=== PATIENT | male | born 1950 | race Caucasian/White ===

== ENCOUNTER 2017-05-05 09:25 | Inpatient (IN) ==
[2017-05-05] MEDS ORDERED: Ipratropium/Albuterol Neb 3 ML IH ONE (09:28)
[2017-05-05] MEDS ORDERED: *HR* LORazepam 2 MG/ML VIAL IVP ONE ×2 (09:32)
[2017-05-05] MEDS ORDERED: *HR* LORazepam 2 MG/ML VIAL ONE (09:33)
[2017-05-05] MEDS ORDERED: Ipratropium/Albuterol Neb 3 ML ONE (09:36)
[2017-05-05 09:43] LABS: Hematocrit 43.2 % (37.5-50.1); Hemoglobin 13.5 g/dL (12.9-16.9); Mean Corpuscular HGB Conc 31.3 g/dL (31.6-35.5); Mean Platelet Volume 11.6 fL (9.4-12.4); Platelet Count 294 K/mcL (140-400)
[2017-05-05] MEDS ORDERED: Levofloxacin 750 MG/150 ML 750 MG/150 ML BAG IVPB ONE (09:52)
[2017-05-05] MEDS ORDERED: 0.9 % Sodium Chloride 500 ML IVC ONE (09:53)
[2017-05-05 09:55] LABS: BUN/Creatinine Ratio 12 (6-26); Blood Urea Nitrogen 15 mg/dL (8-26); Calcium 9.1 mg/dL (8.6-10.8); Carbon Dioxide 31 mEq/L (19-29); Chloride 91 mEq/L (98-109); Osmolality,Calculated 318 (280-300); Potassium 3.6 mEq/L (3.5-4.5); Sodium 140 mEq/L (136-145); eGFR For African Americans > 60 (> 60); eGFR For Non-African Americans > 60 (> 60)
--- NOTE | 2017-05-05 09:55 | Emergency Department Note ---
Disposition Clinical Impression: COPD exacerbation, Elevated troponin, Newly diagnosed diabetes, Acidosis CHF (congestive heart failure) Qualifiers: Congestive heart failure type: unspecified congestive heart failure type Congestive heart failure chronicity: unspecified congestive heart failure chronicity Qualified Code(s): I50.9 - Heart failure, unspecified Disposition: Admitted As Inpatient Referrals: NO,PCP [Primary Care Provider] - Forms: ED Satisfaction Letter SOB HPI - General Chief Complaint: ED Shortness of Breath/Dyspnea Stated Complaint: Diff breathing Time Seen by Provider: 05/05/17 09:28 Source: patient, EMS Limitations: no limitations Nursing Notes Reviewed: Yes Vital Signs Reviewed: Yes - History of Present Illness Patient brought in by ambulance for evaluation of dyspnea. Patient was found to be hypoxic in the mid 70s by EMS. Patient was placed on nonrebreather and brought to [facility]. During route patient received 2 breathing treatments as well as 125 mg of Solu-Medrol. They attempted CPAP but the patient did not tolerate. Patient is a COPD requiring home oxygen 2L, CHF patient states that he started feeling bad at approximately 7 AM today. - Related Data Home Medications Medication Instructions Recorded Confirmed Buprenorphine HCl/Naloxone HCl 1 each SL DAILY 09/24/16 01/20/17 [Suboxone 8 mg-2 mg Sl Film] Digoxin [Lanoxin] 0.125 mg PO DAILY 09/24/16 01/20/17 Fluticasone/Salmeterol [Advair 1 each IH DAILY 09/24/16 01/20/17 250-50 Diskus] Furosemide [Lasix] 20 mg PO DAILY 09/24/16 01/20/17 Albuterol Neb [Proventil Neb] 2.5 mg IH Q4HR 05/05/17 05/05/17 Ibuprofen [Motrin] 800 mg PO TID 05/05/17 05/05/17 Roflumilast [Daliresp] 500 mcg PO DAILY 05/05/17 05/05/17 Previous Rx's Medication Instructions Recorded Carvedilol 12.5 mg PO BID #30 tab 01/22/17 Lisinopril [Zestril] 20 mg PO DAILY #30 tablet 01/22/17 Potassium Chloride [Klor-Con 10] 10 meq PO BID #60 tablet.er 01/22/17 Allergies Allergy/AdvReac Type Severity Reaction Status Date / Time No Known Allergies Allergy Verified 01/17/17 04:28 Review of Systems: CARDIOVASCULAR: Complained of chest pain family 2 days ago RESPIRATORY: Shortness of breath Limitations: ROS unobtainable due to patients medical condition Past Medical History - Past Medical History Medical history: Reports: atrial fibrillation, CHF, COPD, GERD, hyperlipidemia, hypertension, TIA, other Surgical history: Reports: appendectomy, heart valve replacement, pacemaker/AICD Psychiatric history: Reports: anxiety - Social History Smoking Status: Former smoker Smokeless Tobacco Status: Yes (chewing tobacco) Alcohol use: Reports: none Drug use: Reports: none Physical Exam General appearance: Respiratory distress with tachypnea and accessory muscle use. Minimally conversant secondary to overall distress. Patient is able to talk in short sentences. Protecting his airway at this time. Nonrebreather in place. BiPAP initiated upon arrival Eyes: anicteric sclerae, moist conjunctivae; PERRL HENT: Atraumatic; oropharynx clear with moist mucous membranes and no mucosal ulcerations Neck: Normal inspection; Trachea midline; FROM, supple Lungs: Diminished throughout CV: RRR, no MRGs Abdomen: Soft, non-tender; no rebound or gaurding Extremities: +2 pitting edema to the midcalf Skin: Normal temperature; no rash, ulcers or lesions Neuro: Awake limited responsiveness secondary to respiratory distress - General Limitations: no limitations General appearance: alert Course - Reevaluation(s) Reevaluation #1: This patient did not receive 30 mL/kg due for possible sepsis secondary normal HR and BP and history of CHF. Reevaluation #2: Patient with mildly elevated troponin and BNP. Patient with significantly elevated glucose in the setting of a acidotic venous blood gas not completely explained by elevated CO2. Elevated ketones. Patient is tolerating BiPAP well with improvement overall. Insulin drip will be started in the patient's fluid will have 20 mEq of potassium added. Chest x-ray initially read by myself as possible right lower lobe pneumonia over read by radiology as cardiomegaly with vascular congestion. This patient will require a fine balance of fluid resuscitation in the setting of his dyspnea is complicated by CHF and what I believe is respiratory primarily a COPD exacerbation. We will discuss with hospitalist for further admission. Reevaluation #3: D complications at the computer system this is a note to clarify how much fluid the patient received in the emergency department. Patient received 1 L of normal saline that was initially hung by EMS. Upon viewing the initial glucose and potassium patient was started on normal saline with 20 mEq of potassium. The other boluses were not given due to the patient's chest x-ray with CHF and pulmonary vascular congestion. - Consultations Consultation #1: Discussed Dr. Doshi. Patient's respiratory rate is in the 20s. Patient is 97 % with an FiO2 of 80%. We continue to titrate this down. Patient's elevated glucose consistent with new diabetes and insulin drip has been started. Continue to titrate and monitor. Fluids and potassium have been ordered. Respiratory status improved from arrival. Patient does need continued close monitoring. Patient does want intubation if clinical status worsens despite current improvement Vital Signs Temperature 98.7 F 05/05/17 09:26 Pulse Rate 83 05/05/17 09:26 Respiratory Rate 24 05/05/17 09:26 Blood Pressure 136/84 05/05/17 09:26 O2 Sat by Pulse Oximetry 83 05/05/17 09:26 Temperature 98.7 F 05/05/17 09:26 Pulse Rate 65 05/05/17 10:26 Respiratory Rate 16 05/05/17 10:26 Blood Pressure 115/77 05/05/17 10:26 O2 Sat by Pulse Oximetry 95 05/05/17 10:26 Oxygen Delivery Oxygen Delivery Bipap Shortness of Breath/Dyspnea - Medical Records Medical records reviewed: Yes I reviewed the patient's medical records. - Lab Data Lab results reviewed: Yes I reviewed the patient's lab results. Result diagrams: 05/05/17 09:30 05/05/17 09:30 Lab Results 05/05/17 05/05/17 05/05/17 Range/Units 09:30 09:30 09:30 WBC 14.3 H (4.3-11.1) K/mcL RBC 4.50 (4.19-5.50) M/mcL Hgb 13.5 (12.9-16.9) g/dL Hct 43.2 (37.5-50.1) % MCV 96.0 (83.0-100.0) fL MCH 30.0 (28.0-33.3) pg MCHC 31.3 L (31.6-35.5) g/dL RDW 14.0 (11.5-14.5) % Plt Count 294 (140-400) K/mcL MPV 11.6 (9.4-12.4) fL Seg Neutrophils % 52.0 % Band Neutrophils % 1.0 (0-4) % Lymphocytes % 38.0 % Monocytes % 5.0 % Eosinophils % 3.0 % Metamyelocytes % 1.0 H (0) % Neutrophils # 7.6 (1.6-8.9) K/mcL Lymphocytes # 5.4 H (0.6-4.6) K/mcL Monocytes # 0.7 (0.0-1.3) K/mcL Eosinophils # 0.4 (0.0-0.6) K/mcL Platelet Estimate Normal (Normal) VBG pH (7.32-7.42) pH Units VBG pCO2 (41-51) mmHg VBG pO2 (25-40) mmHg VBG HCO3 (21-27) mEq/L Sodium 140 (136-145) mEq/L Potassium 3.6 (3.5-4.5) mEq/L Chloride 91 L (98-109) mEq/L Carbon Dioxide 31 H (19-29) mEq/L BUN 15 (8-26) mg/dL Creatinine 1.21 (0.72-1.25) mg/dL Est GFR ( Amer) > 60 (> 60) Est GFR (Non-Af Amer) > 60 (> 60) BUN/Creatinine Ratio 12 (6-26) Glucose 596 H* (70-99) mg/dL Calculated Osmolality 318 H (280-300) Calcium 9.1 (8.6-10.8) mg/dL Magnesium 1.8 (1.6-2.6) mg/dL Troponin I 0.05 H* (0-0.03) ng/mL B-Natriuretic Peptide (0-100) pg/mL Beta-Hydroxybutyric Acd (0.02-0.27) mmol/L 05/05/17 05/05/17 05/05/17 Range/Units 09:30 09:30 09:50 WBC (4.3-11.1) K/mcL RBC (4.19-5.50) M/mcL Hgb (12.9-16.9) g/dL Hct (37.5-50.1) % MCV (83.0-100.0) fL MCH (28.0-33.3) pg MCHC (31.6-35.5) g/dL RDW (11.5-14.5) % Plt Count (140-400) K/mcL MPV (9.4-12.4) fL Seg Neutrophils % % Band Neutrophils % (0-4) % Lymphocytes % % Monocytes % % Eosinophils % % Metamyelocytes % (0) % Neutrophils # (1.6-8.9) K/mcL Lymphocytes # (0.6-4.6) K/mcL Monocytes # (0.0-1.3) K/mcL Eosinophils # (0.0-0.6) K/mcL Platelet Estimate (Normal) VBG pH 7.13 L* (7.32-7.42) pH Units VBG pCO2 81 H (41-51) mmHg VBG pO2 27 (25-40) mmHg VBG HCO3 26.9 (21-27) mEq/L Sodium (136-145) mEq/L Potassium (3.5-4.5) mEq/L Chloride (98-109) mEq/L Carbon Dioxide (19-29) mEq/L BUN (8-26) mg/dL Creatinine (0.72-1.25) mg/dL Est GFR ( Amer) (> 60) Est GFR (Non-Af Amer) (> 60) BUN/Creatinine Ratio (6-26) Glucose (70-99) mg/dL Calculated Osmolality (280-300) Calcium (8.6-10.8) mg/dL Magnesium (1.6-2.6) mg/dL Troponin I (0-0.03) ng/mL B-Natriuretic Peptide 242 H (0-100) pg/mL Beta-Hydroxybutyric Acd 0.30 H (0.02-0.27) mmol/L - Radiology Data Radiology results reviewed: Yes I reviewed the patient's radiology results. - EKG Data EKG attestation: Yes I reviewed and interpreted this EKG. EKG results narrative: EKG shows ventricularly paced rhythm at a rate of 77. QRS 172. QTC 465. No elevations or depressions. Does not need sclerosis criteria. Consistent with previous EKG of 01/20/17
[2017-05-05 09:56] LABS: Glucose 596 mg/dL (70-99)
[2017-05-05 09:56] LABS: VBG HCO3 26.9 mEq/L (21-27)
[2017-05-05] MEDS ORDERED: *HR* Dextrose 50 % in Water (Syg) 50 ML SYRINGE IVP PRN ×2 (09:56→16:58)
[2017-05-05 09:57] LABS: VBG PH 7.13 pH Units (7.32-7.42)
[2017-05-05] MEDS ORDERED: 0.9 % Sodium Chloride w KCl 20 MEQ/1,000 ML MLS IVC SCH ×3 (09:58→12:21)
[2017-05-05] MEDS ORDERED: 0.9 % Sodium Chloride 1,000 ML IVC ONE (09:58)
[2017-05-05] MEDS ORDERED: Insulin Human Regular 100 UNIT in 0.9 % Sodium Chloride 100 ML IVC SCH (10:00)
[2017-05-05 10:03] LABS: Eosinophils # 0.4 K/mcL (0.0-0.6); Lymphocytes # 5.4 K/mcL (0.6-4.6); Monocytes # 0.7 K/mcL (0.0-1.3); Neutrophils # 7.6 K/mcL (1.6-8.9); Platelet Estimate Normal (Normal)
--- NOTE | 2017-05-05 10:12 | Emergency Department Note ---
START Narrative - START START: I examined this patient and my medical decision-making was reviewed with the P[employer] INSTALLER/PA/Advanced Practice Nurse/Resident Physician. I agree with the documented findings, disposition and treatment plan as described except to the extent set forth below. ED attending note: Patient seen with emergency medicine resident Dr. Munoz. Please see a copy of his note for details of the H&P, evaluation, management and disposition of this patient. We independently had [id number] contact with the patient Briefly: A 67-year-old male by EMS from private home. History of COPD O2 dependent. The patient was too dyspneic to provide much history. family member arrived shortly thereafter. About 2 days of increasing shortness of breath cough and feeling ill. Patient has a pacemaker which she states is going off. Patient is bradycardic hypoxic and tachypneic initially. Placed on BiPAP emergently. EKG shows sinus tachycardia paced. Troponin elevated at 0.05. It has been elevated many times before. Glucose critically elevated at 590+. An VBG pH critically low at 7.13. Provided 50 minutes critical care service for this patient. Patient tolerating BiPAP with mild doses of parenteral Ativan. Patient be better for respiratory failure. Portable chest x -ray read by radiology as CHF with COPD changes. Patient had a dose of IV antibiotics steroids and fluid bolus. Awaiting call back for admission. Disposition pending.
[2017-05-05] MEDS ORDERED: Aspirin 81 MG TAB.CHEW PO ONE (10:19)
[2017-05-05 10:32] LABS: Magnesium 1.8 mg/dL (1.6-2.6)
[2017-05-05] MEDS ORDERED: 0.9 % Sodium Chloride 1,000 ML IVC SCH (11:00)
[2017-05-05] MEDS ORDERED: Acetaminophen 325 MG TABLET PO PRN (12:13)
[2017-05-05] MEDS ORDERED: Naloxone 0.4 MG/ML INJ IVP PRN (12:13)
[2017-05-05] MEDS ORDERED: Ondansetron 4 MG/2 ML VIAL IVP PRN (12:13)
[2017-05-05] MEDS ORDERED: *HR* HYDROcodone/Acet 5/325 mg TABLET PO PRN (12:13)
--- NOTE | 2017-05-05 12:53 | Internal Med History&Physical ---
Date of Encounter: 05/05/17 Time of Encounter: 11:50 Assessment and Plan (1) Acute respiratory failure with hypoxemia Current visit: Yes Status: Acute Patient uses 2.5 L NC at home. He lives alone. Comes with acute dyspnea and found tachypneic and hypoxemic by EMS SaO2 70%. In ED, he was 83% on non- rebreather, now on BIPAP and SaO2 100. CXR reviewed by me and shows pulmonary edema, right pleural effusion and emphysema. BNP 243. troponin 0.05. He received duoneb, aspirin, levfloxacin, lorazepam, and 1L IVF. He is sleepy but easy to arouse and answers yes and no question. He denies any current chest pain , dizziness, or headache. Differential includes COPD exacerbation, heart failure exacerbation, PNA, ACS. continue BIPAP, stat ABG, duonebs, budenoside, solumedrol bid, levofloxacin. echo and CT chest ordered. (2) Hyperglycemia Current visit: Yes Status: Acute Glucose 515. bicarbonate 31. high beta-hydrobutirate. continue insulin drip with gentle fluid hydration given pulmonary edema. accucheck q1hr. NPO (3) CHF (congestive heart failure) Current visit: Yes Status: Acute history of diastolic heart failure. echocardiogram 05/04 showed LVED 50%, mild LV hypretrophy, paced rhtyhm, moderate mitral stenosis. Qualifiers: Congestive heart failure type: diastolic Congestive heart failure chronicity: acute on chronic Qualified Code(s): I50.33 - Acute on chronic diastolic (congestive) heart failure (4) Elevated troponin Current visit: Yes Status: Acute r/o ACS. could be demand ischemia. serial troponins. ASA. (5) Newly diagnosed diabetes Current visit: Yes Status: Acute hba1c ordered. peer educator when stable. (6) Nonischemic cardiomyopathy Current visit: No Status: Chronic plan as above. Internal Medicine - H&P: HPI Chief complaint: shortness of breath this morning. Admitted From: Home Plans for Post Hospital Care: Home History of present illness: Mr. Abarca is a 67 year old male with past medical history of COPD on 2.5 L NC, HTN, CAD s/p CABG and cardiomypathy who lives alone and called EMS this morning because he was short of breath. Patient is on BIPAP, confused and unable to provide a detailed history of present illness. I reviewed all medical records. Per ED, EMS found him hypoxic SAO2 70s and placed him on non-rebreather and gave him 125 mg of solumedrol. When he arrived to our ED, he was placed on BIPAP 16/8 FIO2 70% and received duoneb, aspirin, levfloxacin, lorazepam, and 1L IVF. He is sleepy but easy to arouse and answers yes and no question. He denies any current chest pain, dizziness, or headache. Past Med Surg Social Fam HX - Past Medical History Medical history: atrial fibrillation, CHF, COPD, GERD, hyperlipidemia, hypertension, TIA, other Psychiatric history: anxiety - Past Surgical History Surgical History: appendectomy, heart valve replacement, pacemaker/AICD - Social History Smoking Status: Former smoker Smokeless Tobacco Status: Yes (chewing tobacco) Alcohol use: none Drug use: none - Family History Mother Hx Family Cardiac Disorders: Yes Internal Medicine - H&P: Meds Buprenorphine HCl/Naloxone HCl [Suboxone 8 mg-2 mg Sl Film] 1 film SL BID [History] Digoxin [Lanoxin] 0.125 mg PO DAILY 09/24/16 [History] Fluticasone/Salmeterol [Advair 250-50 Diskus] 1 puff IH BID 09/24/16 [History] Furosemide [Lasix] 20 mg PO DAILY 09/24/16 [History] Carvedilol 12.5 mg PO BID #30 tab 01/22/17 [Rx] Lisinopril [Zestril] 20 mg PO DAILY #30 tablet 01/22/17 [Rx] Potassium Chloride [Klor-Con 10] 10 meq PO BID #60 tablet.er 01/22/17 [Rx] Albuterol Neb [Proventil Neb] 2.5 mg IH Q4HR 05/05/17 [History] Ibuprofen [Motrin] 800 mg PO TID 05/05/17 [History] Roflumilast [Daliresp] 500 mcg PO DAILY 05/05/17 [History] Allergies No Known Allergies Allergy (Verified 01/17/17 04:28) All Systems PM: A 10-system review of systems was performed and is negative for pertinent findings except as documented above in the HPI. - Constitutional Vitals: Temp Pulse Resp BP Pulse Ox 98.7 F 62 16 99/67 100 05/05/17 09:26 05/05/17 11:36 05/05/17 11:36 05/05/17 11:36 05/05/17 11:36 Exam: sleepy but easy to arouse. He moves his extremities and follows commands such as raise his hands and take deep breaths. - Neck Neck exam general surgery: Present: supple, trachea midline. Absent: lymphadenopathy - Respiratory Respiratory exam: Present: decreased breath sounds - Cardiovascular Cardiovascular exam: Present: RRR - GI/Abdominal GI/Abdominal exam: Present: normal bowel sounds, soft. Absent: distended - Extremities Exam Extremities exam: Present: pedal edema (trace Le edema) - Neurological Exam Neurological exam: Absent: facial droop, speech deficit - Skin Additional comments: cold legs. no rahs Internal Med - H&P Results - Labs CBC & Chem 7: 05/05/17 09:30 05/05/17 09:30 Labs: Short CBC 05/05/17 Range/Units 09:30 WBC 14.3 H (4.3-11.1) K/mcL Hgb 13.5 (12.9-16.9) g/dL Hct 43.2 (37.5-50.1) % Plt Count 294 (140-400) K/mcL Neutrophils # 7.6 (1.6-8.9) K/mcL BMP 05/05/17 09:30 Sodium 140 Potassium 3.6 Chloride 91 L Carbon Dioxide 31 H BUN 15 Creatinine 1.21 Glucose 596 H* Calcium 9.1 Cardiac Enzymes 05/05/17 Range/Units 09:30 Troponin I 0.05 H* (0-0.03) ng/mL - ABG Interpretation ABG results: 05/05/17 09:50 VBG pH 7.13 L* VBG pCO2 81 H VBG pO2 27 VBG HCO3 26.9 - Impressions ITS Impressions Chest X-Ray 05/05/17 09:28 IMPRESSION: 1. Cardiomegaly with pulmonary vascular congestion and suspected mild interstitial edema with right pleural effusion 2. Pulmonary emphysema D/ / Alvaro Smyth MD / Alvaro Smyth MD Interpreting Provider: Alvaro Smyth MD
[2017-05-05 13:19] LABS: Prothrombin Time 10.8 Seconds (9.4-12.1)
[2017-05-05 13:21] LABS: Activated Partial Thrombo Time 21.2 Seconds (26.0-36.0)
[2017-05-05 13:25] LABS: Albumin 2.8 g/dL (3.5-5.0); Albumin/Globulin Ratio 0.8 (1.1-2.2); Bilirubin,Direct 0.2 mg/dL (0.0-0.5); Bilirubin,Indirect 0.3 mg/dL (0.0-1.2); Bilirubin,Total 0.5 mg/dL (0.2-1.2); Globulin 3.5 g/dL (2.4-3.5); Total Protein 6.3 g/dL (6.0-8.3)
[2017-05-05] MEDS: Budesonide Neb 0.5 MG/2 ML IH SCH ×2 (13:59→19:58)
[2017-05-05 15:21] LABS: ABG Base Excess 12.6 mEq/L (-2.0 to 3.0); ABG HCO3 39.9 mEQ/L (21-27); ABG Oxygen Saturation 99 % (95-98); ABG PCO2 63 mmHg (35-45); ABG PH 7.41 pH Units (7.32-7.45); ABG PO2 129 mmHg (85-104); ABG TCO2 41.8 mEq/L (20-26)
[2017-05-05 15:22] LABS: Blood Gas FiO2 40 %
[2017-05-05] MEDS: Ipratropium/Albuterol Neb 3 ML IH SCH ×4 (16:20→23:34)
[2017-05-05] MEDS: Levofloxacin 500 MG/100 ML 500 MG/100 ML BAG IVPB SCH (16:21)
[2017-05-05] MEDS ORDERED: D5% in 0.45% NACL w KCl 20 MEQ/1,000 ML MLS IVC PRN (16:58)
[2017-05-05] MEDS ORDERED: MethylPREDNISolone 40 MG/ML VIAL IVP ONE (17:00)
[2017-05-05] MEDS ORDERED: *HR* Heparin 5,000 UNIT/ML VIAL SQ SCH (18:00)
[2017-05-05] MEDS ORDERED: Heparin 25,000 UNIT/500 ML D5W 25,000 UNIT/500 ML MLS IVC SCH (18:00)
[2017-05-05] MEDS: Pantoprazole 40 MG VIAL IVP SCH (18:46)
[2017-05-05 20:27] LABS: BUN/Creatinine Ratio 22 (6-26); Blood Urea Nitrogen 20 mg/dL (8-26); Calcium 8.6 mg/dL (8.6-10.8); Carbon Dioxide 32 mEq/L (19-29); Chloride 99 mEq/L (98-109); Glucose 216 mg/dL (70-99); Osmolality,Calculated 303 (280-300); Potassium 3.3 mEq/L (3.5-4.5); Sodium 142 mEq/L (136-145); eGFR For African Americans > 60 (> 60); eGFR For Non-African Americans > 60 (> 60)
[2017-05-05 23:52] LABS: BUN/Creatinine Ratio 26 (6-26); Blood Urea Nitrogen 20 mg/dL (8-26); Calcium 8.6 mg/dL (8.6-10.8); Carbon Dioxide 33 mEq/L (19-29); Chloride 100 mEq/L (98-109); Glucose 90 mg/dL (70-99); Osmolality,Calculated 298 (280-300); Potassium 3.3 mEq/L (3.5-4.5); Sodium 143 mEq/L (136-145); eGFR For African Americans > 60 (> 60); eGFR For Non-African Americans > 60 (> 60)
[2017-05-06] MEDS ORDERED: *HR* Dextrose 50 % in Water (Syg) 50 ML SYRINGE IVP PRN (00:18)
[2017-05-06] MEDS ORDERED: D5% in Water 1,000 ML IVC PRN (00:18)
[2017-05-06] MEDS ORDERED: Dextrose Gel 15 GM PO PRN ×2 (00:18)
[2017-05-06] MEDS ORDERED: Insulin DETEMIR 100 UNIT/ML X5UNITS SQ ONE (00:55)
[2017-05-06 02:51] LABS: Hematocrit 38.1 % (37.5-50.1); Immature Granulocytes % 0.7 % (0-4); Lymphocytes # 1.1 K/mcL (0.6-4.6); Lymphocytes % 5.2 %; Mean Corpuscular HGB Conc 31.5 g/dL (31.6-35.5); Mean Corpuscular Hemoglobin 29.1 pg (28.0-33.3); Mean Corpuscular Volume 92.3 fL (83.0-100.0); Mean Platelet Volume 11.6 fL (9.4-12.4); Monocytes # 1.4 K/mcL (0.0-1.3); Monocytes % 6.9 %; Neutrophils # 18.3 K/mcL (1.6-8.9); Platelet Count 218 K/mcL (140-400); Red Blood Count 4.13 M/mcL (4.19-5.50); Red Cell Distribution Width 13.8 % (11.5-14.5); Segmented Neutrophils % 87.2 %
[2017-05-06 02:54] LABS: BUN/Creatinine Ratio 28 (6-26); Blood Urea Nitrogen 21 mg/dL (8-26); Calcium 8.8 mg/dL (8.6-10.8); Carbon Dioxide 33 mEq/L (19-29); Chloride 97 mEq/L (98-109); Glucose 152 mg/dL (70-99); Magnesium 1.6 mg/dL (1.6-2.6); Osmolality,Calculated 294 (280-300); Potassium 3.5 mEq/L (3.5-4.5); Sodium 139 mEq/L (136-145); eGFR For African Americans > 60 (> 60); eGFR For Non-African Americans > 60 (> 60)
[2017-05-06] MEDS: Ipratropium/Albuterol Neb 3 ML IH SCH ×5 (04:18→20:25)
[2017-05-06] MEDS: Pantoprazole 40 MG VIAL IVP SCH (08:29)
[2017-05-06] MEDS: Insulin LISPRO 300 UNITS/3 ML VIAL SQ SCH ×4 (08:29→20:35)
[2017-05-06] MEDS: Aspirin Enteric Coated 81 MG Tablet PO SCH (08:30)
--- NOTE | 2017-05-06 10:58 | Pulmonology Consult Note ---
Date of Encounter: 05/06/17 Time of Encounter: 10:57 Assessment and Plan (1) Acute respiratory failure with hypoxemia Current Visit: Yes Status: Acute 67-year-old woman with multiple medical comorbidities who presented with acute on chronic respiratory failure likely secondary to pneumonia with consideration of acute versus chronic aspiration also found to have CT changes that may indicate a possible underlying neoplastic process. Additional course complicated by hyperglycemia and mild DKA with need for insulin drip and troponin elevation suggestive of a demand ischemia versus acute coronary syndrome. Impression: 1. Acute on Chronic Respiratory Failure 2. Pneumonia 3. COPD with Acute Exacerbation. 4. Troponin Elevation 5. Lung Nodule Recs: 1. -When FiO2 to keep oxygen saturations greater than 88 and a 2% okay to use bilevel positive airway pressure support to decrease work of breathing as needed and please provide patient with incentive spirometry, and would recommend out of bed to chair as tolerated 2. -Strong suspicion for acute versus chronic aspiration would cover for aspiration organisms along with community-acquired organisms so will need atypical and anaerobic coverage, since strep. Please send sputum culture and blood cultures if not artery done so. Send urine for Legionella and strep pneumo antigens, patient has received steroids (more so for exacerbation of COPD ). Plan for bronchoscopy once patient is more stable and cleared from cardiology. Recommend formal speech/swallow evaluation. 3. -Schedule bronchodilators every 4 hours (duo nebs) with when necessary albuterol treatments every hour as needed, provide Solu-Medrol IV 60 mg 3 times daily 4. -Agree with cardiology consultation although this appears to be more demand ischemia would be prudent to get at least a limited echocardiogram continue ACS protocol until cleared by cardiology and once cardiology clears patient we would consider for bronchoscopy 5. -This will need repeat imaging once pneumonia has resolved in 4-6 weeks to see if this is part of infectious process or would need consideration of biopsy if bronchoscopy performed while inpatient is not suggestive of underlying endobronchial obstruction DVT coverage currently provided with Heparin gtt Once heparin drip has been turned off and repeat coagulation studies have been sent patient could be consideration for bronchoscopy. To this and would keep nothing by mouth at midnight until reevaluated by pulmonary service tomorrow (2) Troponin level elevated Current Visit: Yes Status: Acute (3) Community acquired pneumonia Current Visit: No Status: Acute (4) COPD exacerbation Current Visit: Yes Status: Acute (5) Current Visit: No History of Present Illness Consult date: 05/06/17 Requesting physician: Yimi Mireles Reason for consult: abnormal CXR/CT Chief complaint: Shortness of breath History of present illness: This is a 67-year-old gentleman with a history of atrial fibrillation aortic valve repair, CAD s/p CABG, HFrEF, and COPD complicated by chronic hypoxic respiratory failure requiring supplemental oxygen (2 L) who presented to the ED for shortness of breath. He said it started acutely yesterday when he felt some pain substernally with some increased shortness of breath. He has a chronic cough of productive greenish sputum which she said was present possibly no worse than where it usually was. He denied fevers chills however when EMS arrived it was noted that oxygen saturation was in the 70s on his baseline 2 L requirement. In the ED CT was performed which is notable for bilateral consolidations a small right pleural effusion and a right-sided lung nodule. There is also a question of endobronchial obstruction on the right side possibly secondary to retained mucus or particulate matter. He was given treatment for community- acquired pneumonia also treated with an insulin drip for hyperglycemia and was at least for short-term placed on bilevel positive airway pressure support because of work of breathing and hypoxia. When I spoke with the gentleman today he had been weaned down to nasal cannula and was quite comfortable in bed and able to speak to me. I will pulmonary perspective he is a long user of tobacco products however he quit smoking about 10 years ago. He denies any issues with difficulty swallowing although he does have difficulty chewing as with loose dentures. He denies vomiting he does not consume large amounts of alcohol and only occasionally endorses gastric reflux. He has no exotic pets no sick contacts has not traveled recently. He also denies hemoptysis night sweats fevers or chills Past Med Surg Social Fam HX - Past Medical History Medical history: atrial fibrillation, CHF, COPD, GERD, hyperlipidemia, hypertension, TIA, other Psychiatric history: anxiety - Past Surgical History Surgical History: appendectomy, heart valve replacement, pacemaker/AICD - Social History Smoking Status: Former smoker Smokeless Tobacco Status: Yes (chewing tobacco) Alcohol use: none Drug use: none - Family History Mother Hx Family Cardiac Disorders: Yes Medications and Allergies Buprenorphine HCl/Naloxone HCl [Suboxone 8 mg-2 mg Sl Film] 1 film SL BID [History] Digoxin [Lanoxin] 0.125 mg PO DAILY 09/24/16 [History] Fluticasone/Salmeterol [Advair 250-50 Diskus] 1 puff IH BID 09/24/16 [History] Furosemide [Lasix] 20 mg PO DAILY 09/24/16 [History] Carvedilol 12.5 mg PO BID #30 tab 01/22/17 [Rx] Lisinopril [Zestril] 20 mg PO DAILY #30 tablet 01/22/17 [Rx] Potassium Chloride [Klor-Con 10] 10 meq PO BID #60 tablet.er 01/22/17 [Rx] Albuterol Neb [Proventil Neb] 2.5 mg IH Q4HR 05/05/17 [History] Ibuprofen [Motrin] 800 mg PO TID 05/05/17 [History] Roflumilast [Daliresp] 500 mcg PO DAILY 05/05/17 [History] Allergies No Known Allergies Allergy (Verified 01/17/17 04:28) All Systems: A 10-system review of systems was performed and is negative for pertinent findings except as documented above in the HPI. Physical Examination Vital Signs: Vital Signs, Last 4 Hours Temp Pulse Resp BP Pulse Ox 05/06/17 08:13 98.7 F 61 18 121/69 97 05/06/17 07:00 60 General appearance: no acute distress Eyes: nonicteric ENT: oropharynx moist Effort: normal Inspection: normal Auscultation: bilateral: diminished breath sounds, rales (Bilateral lung sprague) , rhonchi (Scattered coarse) Cardiovascular: regular rate and rhythm Gastrointestinal: normoactive bowel sounds Integumentary: normal Extremities: no cyanosis, no clubbing, edema (Bilateral 1+ pitting edema) Results - Laboratory Findings CBC and BMP: 05/06/17 02:22 05/06/17 02:22 ABG ABG pH 7.41 pH Units (7.32-7.45) 05/05/17 15:10 ABG pCO2 63 mmHg (35-45) H 05/05/17 15:10 ABG pO2 129 mmHg (85-104) H 05/05/17 15:10 ABG O2 Saturation 99 % (95-98) H 05/05/17 15:10 PT/INR, D-dimer PT 10.8 Seconds (9.4-12.1) 05/05/17 13:03 Abnormal lab findings: Abnormal lab results WBC 21.0 K/mcL (4.3-11.1) H 05/06/17 02:22 RBC 4.13 M/mcL (4.19-5.50) L 05/06/17 02:22 Hgb 12.0 g/dL (12.9-16.9) L D 05/06/17 02:22 MCHC 31.5 g/dL (31.6-35.5) L 05/06/17 02:22 Metamyelocytes % 1.0 % (0) H 05/05/17 09:30 Neutrophils # 18.3 K/mcL (1.6-8.9) H 05/06/17 02:22 Monocytes # 1.4 K/mcL (0.0-1.3) H 05/06/17 02:22 APTT 36.2 Seconds (26.0-36.0) H D 05/06/17 02:22 ABG pCO2 63 mmHg (35-45) H 05/05/17 15:10 ABG pO2 129 mmHg (85-104) H 05/05/17 15:10 ABG HCO3 39.9 mEQ/L (21-27) H 05/05/17 15:10 ABG Total CO2 41.8 mEq/L (20-26) H 05/05/17 15:10 ABG O2 Saturation 99 % (95-98) H 05/05/17 15:10 ABG Base Excess 12.6 mEq/L (-2.0 to 3.0) H 05/05/17 15:10 VBG pH 7.13 pH Units (7.32-7.42) L* 05/05/17 09:50 VBG pCO2 81 mmHg (41-51) H 05/05/17 09:50 Chloride 97 mEq/L (98-109) L 05/06/17 02:22 Carbon Dioxide 33 mEq/L (19-29) H 05/06/17 02:22 BUN/Creatinine Ratio 28 (6-26) H 05/06/17 02:22 Glucose 152 mg/dL (70-99) H 05/06/17 02:22 POC Glucose 93 (58-89) H 05/06/17 00:09 AST 58 Units/L (5-34) H 05/05/17 13:03 Troponin I 0.22 ng/mL (0-0.03) H* 05/06/17 02:22 B-Natriuretic Peptide 242 pg/mL (0-100) H 05/05/17 09:30 Albumin 2.8 g/dL (3.5-5.0) L 05/05/17 13:03 Albumin/Globulin Ratio 0.8 (1.1-2.2) L 05/05/17 13:03 Beta-Hydroxybutyric Acd 0.30 mmol/L (0.02-0.27) H 05/05/17 09:30 - Microbiology Findings Microbiology Findings: Microbiology, Last 48 Hours 05/06/17 02:45 Sputum Culture - Preliminary Sputum - Diagnostic Findings CT scan - chest: report reviewed (1. Interval worsening of now near complete consolidation of the bilateral) - Clinical Findings Intake & Output: Intake & Output 05/05/17 05/06/17 05/06/17 23:59 07:59 15:59 Intake Total 1001.0 / 1001.0 849 / 849 Output Total 300 / 300 350 / 350 Balance 1001.0 / 1001.0 -269 / -269 499 / 499 Weight 72.5 kg Consult Discharge Plan - Plan Referrals: Angel Escamilla DO [Primary Care Provider] -
--- NOTE | 2017-05-06 11:19 | Cardiology Consult Note ---
Date of Encounter: 05/06/17 Time of Encounter: 11:00 Assessment and Plan (1) Elevated troponin Current Visit: Yes Status: Acute Peak troponin 0.35 in the setting of acute respiratory distress and bilateral PE 's. Likely secondary to demand ischemia. Patient denies chest pain or discomfort. ECG shows paced rhythm. He has a hx of minimal, non-obstructive CAD; cardiomyopathy is non-ischemic in etiology. TTE completed on 05/04/17 demonstrated improved LVEF, 50% (was previously 35-40% in 2016) with normal wall motion. Continue asa, will resume home betablocker. Recommend continuing IV heparin gtt until long-term anticoagulation addressed; patient states he has been on pradaxa in the past for afib. No further cardiac testing recommended. (2) Nonischemic cardiomyopathy Current Visit: Yes Status: Chronic Hx of non-ischemic cardiomyopathy, initially dx in 2001. ICD implant at that time. Per review of records, patient has BiV-ICD; generator change being coordinated in the outpatient setting. Most recent TTE, 05/04/17, demonstrated improved LVEF, 50% with normal wall motion. Will resume home coreg today. WIll also resume lisinopril at decreased dose. Follow-up with [facility] in the outpatient setting. (3) PAF (paroxysmal atrial fibrillation) Current Visit: Yes Status: Acute Hx of PAF s/p AV chandrakant ablation in 2010. Patient reports on Pradaxa at home. Will resume home betablocker. (4) History of mitral valve repair Current Visit: Yes Status: Chronic TTE demonstrated moderate MS. Continue to monitor in the outpatient setting. Discussion w patient/family: The assessment and plan as outlined above was discussed with the patient and/or family members who expressed understanding and agreement. All questions were answered. Thank you for involving us in the care of your patient. Please call with any questions. The patient will be discussed and reviewed with Dr. Swenson; changes to be made accordingly. History of Present Illness Consult date: 05/06/17 Requesting physician: Yimi Mireles Consult reason: elevated troponin Chief complaint: Dyspnea History of present illness: Mr. Abarca is a 67 year old male with PMHx significant for PAF s/p AV node ablation in 2010, HTN, HLD, non-ischemic cardiomyopathy s/p ICD, hx of CVA, MVR , DMII, tobacco dependence, and COPD on home o2 who presented to [facility] ED after he developed acute onset of shortness of breath when he awoke yesterday morning ; he states he then called EMS. Per EMS report, SPO2 was in the mid 70's. It should be noted patient is a poor historian. He is noted to have poor outpatient follow-up and non-compliance with medications. Cardiology consulted today for elevated troponin. Recent CV testing: TTE 05/04/17: LVEF 50%, mildly dilated LV, mild cLVH, mildly dilated RV with mildly reduced function, severe biatrial enlargement, mild AI, MV annuloplasy band noted, moderate MS (MG+6 mmHg), mild PH, normal wall motion TTE 03/30/16: LVEF 35-40%, global LV hypokinesis, severely dilated left and right atrium, mild AR, s/p MV annuloplasty, mild MS, mild MR Past Med Surg Social Fam HX - Past Medical History Attestation: Yes The following information was validated with the patient. Source: patient, old records reviewed Medical history: atrial fibrillation, CHF, COPD, CVA, diabetes, GERD, hyperlipidemia, hypertension, TIA, valvular heart disease Psychiatric history: anxiety - Past Surgical History Surgical History: appendectomy, heart valve replacement, pacemaker/AICD - Social History Smoking Status: Former smoker Smokeless Tobacco Status: Yes (chewing tobacco 1 can/day) Alcohol use: rarely Drug use: none - Family History Mother Hx Family Cardiac Disorders: Yes Medications and Allergies Buprenorphine HCl/Naloxone HCl [Suboxone 8 mg-2 mg Sl Film] 1 film SL BID [History] Digoxin [Lanoxin] 0.125 mg PO DAILY 09/24/16 [History] Fluticasone/Salmeterol [Advair 250-50 Diskus] 1 puff IH BID 09/24/16 [History] Furosemide [Lasix] 20 mg PO DAILY 09/24/16 [History] Carvedilol 12.5 mg PO BID #30 tab 01/22/17 [Rx] Lisinopril [Zestril] 20 mg PO DAILY #30 tablet 01/22/17 [Rx] Potassium Chloride [Klor-Con 10] 10 meq PO BID #60 tablet.er 01/22/17 [Rx] Albuterol Neb [Proventil Neb] 2.5 mg IH Q4HR 05/05/17 [History] Ibuprofen [Motrin] 800 mg PO TID 05/05/17 [History] Roflumilast [Daliresp] 500 mcg PO DAILY 05/05/17 [History] Allergies No Known Allergies Allergy (Verified 01/17/17 04:28) All Systems Review: A 10-system review of systems was performed and is negative for pertinent findings except as documented above in the HPI. - Cardiovascular Cardiovascular: as per HPI Physical Examination Vital Signs, Last 4 Hours Temp Pulse Resp BP Pulse Ox 05/06/17 08:13 98.7 F 61 18 121/69 97 General: Conversant, No Apparent Distress HEENT: Atraumatic, Normocephaly Cardiac: Other (irreguarly irregular) Lungs: Other (Decreased breath sounds throughout) Neuro: Alert and responsive Abdomen: Soft Skin: No rashes noted on visualized skin Musculoskeletal: No Chest Wall Tenderness Extremities: Normal Pulses, Other (mild pre-tibial edema) Results 05/06/17 02:22 05/06/17 02:22 Lab Results 05/05/17 05/05/17 05/05/17 17:03 19:33 23:27 WBC Hgb Hct Plt Count APTT Sodium 142 143 Potassium 3.3 L 3.3 L Chloride 99 100 Carbon Dioxide 32 H 33 H BUN 20 20 Creatinine 0.89 0.77 Glucose 216 H 90 Calcium 8.6 8.6 Magnesium Troponin I 0.35 H* 05/06/17 05/06/17 05/06/17 02:22 02:22 02:22 WBC 21.0 H Hgb 12.0 L D Hct 38.1 Plt Count 218 APTT Sodium 139 Potassium 3.5 Chloride 97 L Carbon Dioxide 33 H BUN 21 Creatinine 0.76 Glucose 152 H Calcium 8.8 Magnesium 1.6 Troponin I 0.22 H* - Imaging and Cardiology Echo: report reviewed Other Results: 12 hour tele: avg HR-66 paced. - EKG Interpretation EKG results cardiology: personally reviewed Consult Discharge Plan - Plan Referrals: Angel Escamilla DO [Primary Care Provider] -
[2017-05-06] MEDS: Budesonide Neb 0.5 MG/2 ML IH SCH ×2 (11:22→20:26)
[2017-05-06] MEDS ORDERED: *HR* Heparin 5,000 UNIT/ML VIAL IVP PRN (11:48)
[2017-05-06] MEDS: Ampicillin/Sulbactam 1,500 MG in 0.9 % Sodium Chloride Mini Bag 100 ML IVPB SCH ×3 (12:00→23:15)
[2017-05-06] MEDS ORDERED: Metoprolol XL (24 HR) Succ 25 MG TAB.ER.24H PO SCH (12:00)
[2017-05-06 12:24] LABS: Hematocrit 38.4 % (37.5-50.1); Hemoglobin 12.4 g/dL (12.9-16.9); Mean Corpuscular HGB Conc 32.3 g/dL (31.6-35.5); Mean Corpuscular Volume 92.8 fL (83.0-100.0); Mean Platelet Volume 11.8 fL (9.4-12.4); Platelet Count 216 K/mcL (140-400); Red Blood Count 4.14 M/mcL (4.19-5.50); Red Cell Distribution Width 14.2 % (11.5-14.5)
[2017-05-06 12:33] LABS: INR 1.1; Prothrombin Time 11.6 Seconds (9.4-12.1)
[2017-05-06 12:36] LABS: Activated Partial Thrombo Time 26.2 Seconds (26.0-36.0)
[2017-05-06] MEDS: Heparin 25,000 UNIT/500 ML D5W 25,000 UNIT/500 ML MLS IVC SCH (12:39)
[2017-05-06] MEDS: Levofloxacin 500 MG/100 ML 500 MG/100 ML BAG IVPB SCH (12:40)
--- NOTE | 2017-05-06 12:55 | Internal Med Progress Note ---
<Yimi Mireles - Last Filed: 05/06/17 12:51> Date of Encounter: 05/06/17 Time of Encounter: 09:15 - Assessment and plan (1) Acute respiratory failure with hypoxemia Current Visit: Yes Status: Acute Assessment and plan: Patient presents with hypoxia and acidosis. He has history of COPD, CHF, and atrial fibrillation. e reports shortness of breath today.He denies fever, cough , and chest pain. Chest CT findings concerning for acute versus chronic aspiration (versus potential neoplastic process). Patient acidosis could be from apparent DKA of presentation, though unsure of contribution. Elevated troponin seen at presentation as well, though likely explained by presence of bilateral pulmonary emboli. Patient started on standard dose heparin drip for treatment of pulmonary emboli Patient on Levaquin and Unasyn day 1 Patient receiving breathing treatments with albuterol/ipratropium every 4 hours scheduled Patient on 60 mg Solu-Medrol every 8 hour Continue supplemental oxygen as needed, wean as tolerated titrate his overall action to 88-92%Oxygen saturation, BiPAP as needed Sputum and blood cultures (2) Pulmonary emboli Current Visit: Yes Status: Acute Assessment and plan: Bilateral pulmonary emboli identified on CT patient chest. Patient started on standard dose heparin drip Continue supplemental oxygen as needed, wean as tolerated Attempt to titrate oxygen to 88-92%, BiPAP if needed Treatment potential pneumonia as above We will obtain bilateral lower extremity Dopplers Qualifiers: Pulmonary embolism type: other Chronicity: acute Acute cor pulmonale presence: without acute cor pulmonale Qualified Code(s): I26.99 - Other pulmonary embolism without acute cor pulmonale (3) Community acquired pneumonia Current Visit: No Status: Acute Assessment and plan: Plan as above (4) COPD (chronic obstructive pulmonary disease) Current Visit: No Status: Chronic Assessment and plan: Patient has history of COPD and presents with difficulty breathing, hypoxia, acidosis concerning for exacerbation of COPD Plan as above Qualifiers: COPD type: emphysema Emphysema type: unspecified Qualified Code(s): J43.9 - Emphysema, unspecified (5) Abnormal finding on CT scan Current Visit: Yes Status: Acute Assessment and plan: Patient's chest CT shows several concerning findings for which he might need bronchoscopy. These findings could represent acute versus chronic aspiration, pneumonia, or neoplastic process. Pulmonology has been consulted and appreciate their recommendations for continued management/care Continue supplemental oxygen as needed, wean as tolerated Patient on Levaquin (day 1) and Unasyn (day 1) Impressions Chest CT 05/05/17 17:49 IMPRESSION: 1. Interval worsening of now near complete consolidation of the bilateral lower lobes, with a more central masslike appearance of opacity within the superior segment of the right lower lobe, now causing obstruction of the right lower lobe bronchi. While this could represent interval worsening of bilateral lobe pneumonia or aspiration, the possibility of a developing right lower lobe pulmonary malignancy is raised. Suggest clinical correlation, formal pulmonary consultation, and consider bronchoscopy for further evaluation. Alternatively, a PET-CT study could also be considered for further evaluation. 2. New small right pleural effusion. 3. Curvilinear consolidative subpleural opacity within the right middle lobe most likely reflects additional atelectasis or pneumonia. 4. Focal tree-in-bud opacities within the superior segment of the left lower lobe likely reflect an infectious or inflammatory bronchiolitis. 5. New nonspecific 1.7 x 0.9 cm pleural density along the posterior right upper lobe, likely a mild focus of atelectasis. However, attention to this abnormality on follow-up imaging is recommended to ensure resolution. 6. Stable mediastinal lymphadenopathy, unchanged from 01/20/2017. 7. Stable cardiomegaly. D/ / 05/05/2017 23:32:18 Dave Campuzano MD / vanessa Interpreting Provider: Dave Campuzano MD Chest CTA 05/06/17 10:16 IMPRESSION: 1. Bilateral pulmonary emboli 2. Stable appearance of airspace consolidation predominantly in the lower lobes, with small pleural effusions. The appearance is most suggestive of pneumonia and/or atelectasis, less likely edema or infarcts D/ / Alvaro Smyth MD / Alvaro Smyth MD Interpreting Provider: Alvaro Smyth MD (6) Troponin level elevated Current Visit: Yes Status: Acute Assessment and plan: Patient found to have elevated troponin of 0.05 at presentation repeat troponin went to 0.35 and has since trended downward. Echocardiogram performed on showed EF of 50% with mildly dilated left ventricle, concentric left ventricular hypertrophy, indeterminate diastolic function, atypical septal motion consistent with paced rhythm, severe biatrial enlargement. Patient found to have bilateral pulmonary emboli on CTA of of his chest Cardiology consulted due to concerns of elevated troponins, likely demand ischemia given presence of pulmonary emboli (7) Hyperglycemia Current Visit: Yes Status: Acute Assessment and plan: Patient presented in DKA with anion gap of 18, blood sugars close to 600, and VBG that showed acidosis of 7.13. His DKA quickly resolved on insulin drip and he was transitioned to subcutaneous insulin. We will continue patient's subcutaneous insulin with 8 units Levemir at night and low dose corrective sliding scale subcutaneous insulin (8) History of mitral valve repair Current Visit: Yes Status: Chronic (9) DVT prophylaxis Current Visit: Yes Status: Acute Assessment and plan: Patient currently on heparin drip for treatment of bilateral pulmonary emboli - Time Spent With Patient Greater than 35 minutes - Subjective Interval history: Patient reports he is feeling much improved this morning. He does report having some discomfort in his back and legs having been laying in bed, but states he is able to breathe much better and is feeling close to baseline. He denies any cough, denies fever/chills. He does report some continued shortness of breath, but not very significant. He denies chest pain, chest pressure, palpitations. He denies any history of diabetes. He reports that his midline, sternal surgical incision is from a valvular repair that he underwent not from prior CABG. - Constitutional Vitals: Temp Pulse Resp BP Pulse Ox 98.1 F 70 18 125/70 96 05/06/17 11:41 05/06/17 11:41 05/06/17 11:41 05/06/17 11:41 05/06/17 11:41 Exam: General: Cooperative, pleasant, no acute distress, alert and oriented 3, answers questions appropriately HEENT: Normocephalic, atraumatic, neck supple, trachea midline, Conjunctiva pink , sclera anicteric, EOMI, PERRL, oral mucosa moist, no orophargeal erythema or exudates Respiratory: No accessory muscle usage, decreased breath sounds noted on right lower lobe, increased breathy adventitious sounds in left lower lobe Cardiovascular: Regular rate and rhythm, S1 and S2 present, no murmurs/rubs/ gallops/clicks appreciated, midline surgical scar from prior valvular repair, scar in left anterior chest with underlying pacemaker GI/abdominal: Nondistended, nontender, soft, normal bowel sounds, no peritoneal signs Extremities: No calf tenderness, noncyanotic, mild pretibial edema noted in right lower extremity, warm, lower extremity pulses palpable and symmetrical Neurological: Alert and oriented 3, no facial droop, no focal deficits Skin: Dry, intact, normal color Internal Medicine: Result - Labs CBC & Chem 7: 05/06/17 12:16 05/06/17 02:22 Labs: Short CBC 05/06/17 05/06/17 Range/Units 02:22 12:16 WBC 21.0 H 23.2 H (4.3-11.1) K/mcL Hgb 12.0 L D 12.4 L (12.9-16.9) g/dL Hct 38.1 38.4 (37.5-50.1) % Plt Count 218 216 (140-400) K/mcL Neutrophils # 18.3 H (1.6-8.9) K/mcL BMP 05/05/17 05/05/17 05/06/17 19:33 23:27 02:22 Sodium 142 143 139 Potassium 3.3 L 3.3 L 3.5 Chloride 99 100 97 L Carbon Dioxide 32 H 33 H 33 H BUN 20 20 21 Creatinine 0.89 0.77 0.76 Glucose 216 H 90 152 H Calcium 8.6 8.6 8.8 Cardiac Enzymes 05/05/17 05/06/17 Range/Units 17:03 02:22 Troponin I 0.35 H* 0.22 H* (0-0.03) ng/mL - ABG Interpretation ABG results: ABG ABG pH 7.41 pH Units (7.32-7.45) 05/05/17 15:10 ABG pCO2 63 mmHg (35-45) H 05/05/17 15:10 ABG pO2 129 mmHg (85-104) H 05/05/17 15:10 ABG O2 Saturation 99 % (95-98) H 05/05/17 15:10 PT/INR, D-dimer PT 11.6 Seconds (9.4-12.1) 05/06/17 12:16 - Impressions Impressions Chest CT 05/05/17 17:49 IMPRESSION: 1. Interval worsening of now near complete consolidation of the bilateral lower lobes, with a more central masslike appearance of opacity within the superior segment of the right lower lobe, now causing obstruction of the right lower lobe bronchi. While this could represent interval worsening of bilateral lobe pneumonia or aspiration, the possibility of a developing right lower lobe pulmonary malignancy is raised. Suggest clinical correlation, formal pulmonary consultation, and consider bronchoscopy for further evaluation. Alternatively, a PET-CT study could also be considered for further evaluation. 2. New small right pleural effusion. 3. Curvilinear consolidative subpleural opacity within the right middle lobe most likely reflects additional atelectasis or pneumonia. 4. Focal tree-in-bud opacities within the superior segment of the left lower lobe likely reflect an infectious or inflammatory bronchiolitis. 5. New nonspecific 1.7 x 0.9 cm pleural density along the posterior right upper lobe, likely a mild focus of atelectasis. However, attention to this abnormality on follow-up imaging is recommended to ensure resolution. 6. Stable mediastinal lymphadenopathy, unchanged from 01/20/2017. 7. Stable cardiomegaly. D/ / 05/05/2017 23:32:18 Dave Campuzano MD / vanessa Interpreting Provider: Dave Campuzano MD Chest CTA 05/06/17 10:16 IMPRESSION: 1. Bilateral pulmonary emboli 2. Stable appearance of airspace consolidation predominantly in the lower lobes, with small pleural effusions. The appearance is most suggestive of pneumonia and/or atelectasis, less likely edema or infarcts D/ / Alvaro Smyth MD / Alvaro Smyth MD Interpreting Provider: Alvaro Smyth MD - VTE Documentation of Mechanical Device: Venous foot pump, device Consult Discharge Plan - Plan Referrals: Angel Escamilla, [Primary Care Provider] - <Enoc Vincent - Last Filed: 05/06/17 14:02> Date of Encounter: 05/06/17 - Constitutional Vitals: Temp Pulse Resp BP Pulse Ox 98.1 F 70 18 125/70 96 05/06/17 11:41 05/06/17 11:41 05/06/17 11:41 05/06/17 11:41 05/06/17 11:41 Internal Medicine: Result - Labs CBC & Chem 7: 05/06/17 12:16 05/06/17 02:22 Labs: Short CBC 05/06/17 05/06/17 Range/Units 02:22 12:16 WBC 21.0 H 23.2 H (4.3-11.1) K/mcL Hgb 12.0 L D 12.4 L (12.9-16.9) g/dL Hct 38.1 38.4 (37.5-50.1) % Plt Count 218 216 (140-400) K/mcL Neutrophils # 18.3 H (1.6-8.9) K/mcL BMP 05/05/17 05/05/17 05/06/17 19:33 23:27 02:22 Sodium 142 143 139 Potassium 3.3 L 3.3 L 3.5 Chloride 99 100 97 L Carbon Dioxide 32 H 33 H 33 H BUN 20 20 21 Creatinine 0.89 0.77 0.76 Glucose 216 H 90 152 H Calcium 8.6 8.6 8.8 Cardiac Enzymes 05/05/17 05/06/17 Range/Units 17:03 02:22 Troponin I 0.35 H* 0.22 H* (0-0.03) ng/mL - ABG Interpretation ABG results: ABG ABG pH 7.41 pH Units (7.32-7.45) 05/05/17 15:10 ABG pCO2 63 mmHg (35-45) H 05/05/17 15:10 ABG pO2 129 mmHg (85-104) H 05/05/17 15:10 ABG O2 Saturation 99 % (95-98) H 05/05/17 15:10 PT/INR, D-dimer PT 11.6 Seconds (9.4-12.1) 05/06/17 12:16 - Impressions Impressions Chest CT 05/05/17 17:49 IMPRESSION: 1. Interval worsening of now near complete consolidation of the bilateral lower lobes, with a more central masslike appearance of opacity within the superior segment of the right lower lobe, now causing obstruction of the right lower lobe bronchi. While this could represent interval worsening of bilateral lobe pneumonia or aspiration, the possibility of a developing right lower lobe pulmonary malignancy is raised. Suggest clinical correlation, formal pulmonary consultation, and consider bronchoscopy for further evaluation. Alternatively, a PET-CT study could also be considered for further evaluation. 2. New small right pleural effusion. 3. Curvilinear consolidative subpleural opacity within the right middle lobe most likely reflects additional atelectasis or pneumonia. 4. Focal tree-in-bud opacities within the superior segment of the left lower lobe likely reflect an infectious or inflammatory bronchiolitis. 5. New nonspecific 1.7 x 0.9 cm pleural density along the posterior right upper lobe, likely a mild focus of atelectasis. However, attention to this abnormality on follow-up imaging is recommended to ensure resolution. 6. Stable mediastinal lymphadenopathy, unchanged from 01/20/2017. 7. Stable cardiomegaly. D/ / 05/05/2017 23:32:18 Dave Campuzano MD / vanessa Interpreting Provider: Dave Campuzano MD Chest CTA 05/06/17 10:16 IMPRESSION: 1. Bilateral pulmonary emboli 2. Stable appearance of airspace consolidation predominantly in the lower lobes, with small pleural effusions. The appearance is most suggestive of pneumonia and/or atelectasis, less likely edema or infarcts D/ / Alvaro Smyth MD / Alvaro Smyth MD Interpreting Provider: Alvaro Smyth MD - Attending Attestation I examined this patient and my medical decision-making was reviewed with the PULMONARY CARE NURSE/PA/Advanced Practice Nurse/Resident Physician. I agree with the documented findings, disposition and treatment plan as described except to the extent set forth below. Pulmonary embolism with elevation of cardiac biomarkers and possible concomitant infection. Heparin drip, cardio and pulmonology following. Resume suboxone. Agree with Mohan Mireles.
[2017-05-06] MEDS ORDERED: *HR* Buprenorphine HCl 2 MG SUBLINGUAL TABLET SL SCH (13:15)
[2017-05-06] MEDS: methylPREDNISolone 125 MG/2 ML VIAL IVP SCH (16:18)
[2017-05-06] MEDS ORDERED: *HR* Heparin 5,000 UNIT/ML VIAL SQ SCH (18:00)
[2017-05-06] MEDS: *HR* Heparin 5,000 UNIT/ML VIAL IVP PRN (19:06)
[2017-05-06] MEDS: Insulin DETEMIR 100 UNIT/ML X5UNITS SQ SCH (20:34)
[2017-05-06] MEDS ORDERED: Insulin LISPRO 300 UNITS/3 ML VIAL SQ SCH (21:00)
[2017-05-07] MEDS: Ipratropium/Albuterol Neb 3 ML IH SCH ×6 (00:08→20:09)
[2017-05-07] MEDS: methylPREDNISolone 125 MG/2 ML VIAL IVP SCH ×3 (00:25→17:23)
[2017-05-07 01:14] LABS: Basophils % 0.1 %; Hemoglobin 11.2 g/dL (12.9-16.9); Immature Platelets 8.4 % (1.1-6.1); Lymphocytes # 0.9 K/mcL (0.6-4.6); Mean Corpuscular Hemoglobin 29.5 pg (28.0-33.3); Mean Corpuscular Volume 92.1 fL (83.0-100.0); Mean Platelet Volume 11.5 fL (9.4-12.4); Monocytes # 0.6 K/mcL (0.0-1.3); Monocytes % 3.2 %; Neutrophils # 16.1 K/mcL (1.6-8.9); Platelet Count 224 K/mcL (140-400); Red Cell Distribution Width 14.2 % (11.5-14.5); Segmented Neutrophils % 90.7 %
[2017-05-07 01:27] LABS: BUN/Creatinine Ratio 25 (6-26); Blood Urea Nitrogen 19 mg/dL (8-26); Calcium 9.7 mg/dL (8.6-10.8); Carbon Dioxide 31 mEq/L (19-29); Chloride 98 mEq/L (98-109); Glucose 147 mg/dL (70-99); Magnesium 1.7 mg/dL (1.6-2.6); Osmolality,Calculated 291 (280-300); Phosphorous 2.7 mg/dL (2.3-4.7); Potassium 4.5 mEq/L (3.5-4.5); Sodium 138 mEq/L (136-145); eGFR For African Americans > 60 (> 60); eGFR For Non-African Americans > 60 (> 60)
[2017-05-07] MEDS: *HR* Heparin 5,000 UNIT/ML VIAL IVP PRN (01:40)
[2017-05-07] MEDS: Ampicillin/Sulbactam 1,500 MG in 0.9 % Sodium Chloride Mini Bag 100 ML IVPB SCH ×2 (04:11→11:27)
--- NOTE | 2017-05-07 06:58 | Venous Imaging Report ---
LE Venous Duplex Patient Name:Merlin Abarca Order Number:[id number] Procedure Date:05/06/2017 Date:2Age:67 yrs Gender:Male Location:[facility] Room #: 2N07 [employer] Equipment Operator:Kelechi Núñez RDCS Referring MD:DO Divya Cain MD:Asael Cortes MD Primary Indications:Swelling of limb Secondary Indications: Impressions: Normal bilateral lower extremity deep and superficial venous exam. Findings Venous Duplex Results: Right: Venous imaging of the lower extremity reveals full patency and normal vessel compressibility of the right distal iliac, right common femoral, right superficial femoral, right popliteal, right posterior tibial, right peroneal, right saphenofemoral junction, right great saphenous and right lesser saphenous. Doppler signals in the evaluated veins were normal. Left: Venous imaging of the lower extremity reveals full patency and normal vessel compressibility of the left distal iliac, left common femoral, left superficial femoral, left popliteal, left posterior tibial, left peroneal, left saphenofemoral junction, left great saphenous and left lesser saphenous. Doppler signals in the evaluated veins were normal. Prior Study: No prior study available for comparison. Lower Extremity Venous Duplex Side Vein Compress Spontaneous Flow Augment Diameter (cm) Depth (cm) Right Distal Iliac Normal Yes Phasic Yes Right Common Femoral Normal Yes Phasic Yes Right Superficial Femoral Normal Yes Phasic Yes Right Popliteal Normal Yes Phasic Yes Right Posterior Tibial Normal Yes Phasic Yes Right Peroneal Normal Yes Phasic Yes Right Saphenofemoral Junction Normal Yes Phasic Yes Right Great Saphenous Normal Yes Phasic Yes Right Lesser Saphenous Normal Yes Phasic Yes Left Distal Iliac Normal Yes Phasic Yes Left Common Femoral Normal Yes Phasic Yes Left Superficial Femoral Normal Yes Phasic Yes Left Popliteal Normal Yes Phasic Yes Left Posterior Tibial Normal Yes Phasic Yes Left Peroneal Normal Yes Phasic Yes Left Saphenofemoral Junction Normal Yes Phasic Yes Left Great Saphenous Normal Yes Phasic Yes Left Lesser Saphenous Normal Yes Phasic Yes Updated by Asael Cortes MD on 05/07/2017 6:51:14 AM electronically signed on 05/07/2017 6:51:29 AM with status of Final
[2017-05-07] MEDS: Budesonide Neb 0.5 MG/2 ML IH SCH ×2 (08:06→20:10)
--- NOTE | 2017-05-07 08:14 | Electrocardiograph Report ---
[place] [id number] Test Date: 2017-05-05 Pat Name: Merlin Abarca Department: 105 Room: 2N07 Gender: M Staff Electrical Engineer: : [id number] Requested By: Felecia Jalloh Order Number: [id number] Reading MD: Weston Mata MD Measurements Intervals [place] Rate: 77 P: WV: 0 QRS: 251 QRSD: 172 T: 55 QT: 433 QTc: 465 Interpretive Statements ELECTRONIC VENTRICULAR PACEMAKER Electronically Signed On 05-07-2017 8:13:12 EDT by Weston Mata MD
[2017-05-07] MEDS: Insulin LISPRO 300 UNITS/3 ML VIAL SQ SCH ×4 (08:32→21:22)
[2017-05-07] MEDS: Pantoprazole 40 MG VIAL IVP SCH (08:32)
--- NOTE | 2017-05-07 10:45 | Cardiology Progress Note ---
Date of Encounter: 05/07/17 Time of Encounter: 10:00 Assessment and Plan (1) Elevated troponin Current Visit: Yes Status: Acute Peak troponin 0.35 in the setting of acute respiratory distress, PNA and bilateral PE's. Likely secondary to demand ischemia. Of note, CT chest worsening PNA vs. neoplastic process. Patient denies chest pain or discomfort. ECG shows paced rhythm with deep lateral T wave changes--recommended CT head which was negative for acute process. He has a hx of minimal, non-obstructive CAD; cardiomyopathy is non-ischemic in etiology. TTE completed on 05/04/17 demonstrated improved LVEF, 50% (was previously 35-40% in 2016) with normal wall motion. Continue asa and betablocker. Recommend continuing IV heparin gtt until long- term anticoagulation addressed; patient states he has been on pradaxa in the past for afib. No further cardiac testing recommended--Cardiology will sign-off. Please call with questions, appt coordinated with [facility] in the outpatient setting. (2) Nonischemic cardiomyopathy Current Visit: Yes Status: Chronic Hx of non-ischemic cardiomyopathy, initially dx in 2001. ICD implant at that time. Per review of records, patient has BiV-ICD; generator change being coordinated in the outpatient setting. Device check completed today, reviewed with Dr. Shilo Fox. LOLY on 04/20/17, has outpatient appt with Dr. Shilo Fox prior to gen change. Most recent TTE, 05/04/17, demonstrated improved LVEF, 50% with normal wall motion. Continue betablocker and ACEi. Follow-up with [facility] in the outpatient setting. (3) PAF (paroxysmal atrial fibrillation) Current Visit: Yes Status: Acute Hx of PAF s/p AV chandrakant ablation in 2010. Patient reports on Pradaxa at home--ran out several weeks ago. Continue betablocker. (4) History of mitral valve repair Current Visit: Yes Status: Chronic TTE demonstrated moderate MS. Continue to monitor in the outpatient setting. Discussion w patient/family: The assessment and plan as outlined above was discussed with the patient and/or family members who expressed understanding and agreement. All questions were answered. Thank you for involving us in the care of your patient. Please call with any questions. The patient will be discussed and reviewed with Dr. Shilo Fox; changes to be made accordingly. Subjective Principal diagnosis: Acute respiratory distress, PE Interval history: Seen and examined. Patient states he feels much better today. Device check completed at bedside, will place results in chart. Objective Vital Signs, Last 4 Hours Temp Pulse Resp BP Pulse Ox 05/07/17 08:24 61 96 05/07/17 07:50 16 96 05/07/17 07:12 98.5 F 62 18 125/76 94 General: Conversant, No Apparent Distress HEENT: Atraumatic, Normocephaly Cardiac: Other (paced rhythm, diastolic murmur) Lungs: Other (Decreased breath sounds bibasilar; coarse throughout) Neuro: Alert and responsive, No focal deficits noted Abdomen: Soft Skin: No rashes noted on visualized skin Musculoskeletal: No Chest Wall Tenderness Extremities: Other (mild BLE edema, pre-tibial) Results 05/07/17 01:06 05/07/17 01:06 Lab Results 05/06/17 05/06/17 05/06/17 12:16 12:16 18:36 WBC 23.2 H Hgb 12.4 L Hct 38.4 Plt Count 216 INR 1.1 APTT 26.2 43.9 H D Sodium Potassium Chloride Carbon Dioxide BUN Creatinine Glucose Calcium Magnesium 05/07/17 05/07/17 05/07/17 01:06 01:06 01:06 WBC 17.8 H Hgb 11.2 L Hct 35.0 L Plt Count 224 INR APTT 50.8 H Sodium 138 Potassium 4.5 D Chloride 98 Carbon Dioxide 31 H BUN 19 Creatinine 0.76 Glucose 147 H Calcium 9.7 Magnesium 1.7 Active Medications Acetaminophen (Tylenol) 650 mg PO Q6HR PRN PRN Reason: Mild Pain (1-3) Stop: 11/04/17 12:14 Last Admin: 05/06/17 12:43 Dose: 650 mg Albuterol/Ipratropium (Duoneb) 3 ml IH Q4HR [place] PRN Reason: Protocol Stop: 11/04/17 12:53 Last Admin: 05/07/17 11:12 Dose: 3 ml Aspirin (Aspirin Ec) 81 mg PO DAILY [facility] Stop: 11/05/17 09:01 Last Admin: 05/06/17 08:30 Dose: 81 mg Budesonide (Pulmicort Neb) 0.5 mg IH BIDR [facility] Stop: 11/04/17 13:01 Last Admin: 05/07/17 08:06 Dose: 0.5 mg Carvedilol (Coreg) 12.5 mg PO BIDWM [place] PRN Reason: Protocol Stop: 11/05/17 17:01 Last Admin: 05/07/17 08:32 Dose: 12.5 mg Dextrose/Water (Dextrose 50% (Syg)) 25 ml IVP Q15MIN PRN PRN Reason: Hypoglycemia Stop: 11/04/17 16:59 Dextrose/Water (Dextrose 50% (Syg)) 25 ml IVP AD PRN PRN Reason: Hypoglycemia Stop: 11/05/17 00:19 Glucagon (Glucagen) 1 mg IM ONCE PRN PRN Reason: Hypoglycemia Stop: 11/05/17 00:19 Glucose (Gluctose) 15 gm PO ONCE PRN PRN Reason: Hypoglycemia Stop: 11/05/17 00:19 Glucose (Gluctose) 30 gm PO ONCE PRN PRN Reason: Hypoglycemia Stop: 11/05/17 00:19 Guaifenesin (Mucinex) 1,200 mg PO BID [facility] Stop: 11/05/17 09:01 Last Admin: 05/06/17 20:34 Dose: 1,200 mg Heparin Sodium (Porcine) (Heparin) 5,100 unit 70 unit/kg (5100 unit) IVP Q6HR PRN PRN Reason: SEE COMMENTS Stop: 11/05/17 11:49 Last Admin: 05/06/17 12:47 Dose: 5,100 unit Heparin Sodium (Porcine) (Heparin) 2,500 unit 35 unit/kg (2500 unit) IVP Q6H PRN PRN Reason: SEE COMMENTS Stop: 11/05/17 11:49 Last Admin: 05/07/17 01:40 Dose: 2,500 unit Levofloxacin/Dextrose (Levaquin Premix 500mg/100ml) 500 mg in 100 mls @ 100 mls /hr IVPB Q24H [place] PRN Reason: Protocol Stop: 11/04/17 13:01 Last Infusion: 05/06/17 13:53 Dose: Infused Dextrose (Dextrose 5%) 1,000 mls @ 100 mls/hr IVC .Q10H PRN PRN Reason: HYPOGLYCEMIA Stop: 11/05/17 00:19 Ampicillin Sodium/Sulbactam Sodium 1,500 mg/ Sodium Chloride 100 mls @ 200 mls/ hr IVPB Q6H [facility] Stop: 11/05/17 11:01 Last Infusion: 05/07/17 04:54 Dose: Infused Heparin Sodium/Dextrose (Heparin 25,000 Unit/500 Ml D5w) 25,000 unit in 500 mls @ 20.3 mls/hr IVC .Q24H [place]; 14 UNIT/KG/HR PRN Reason: Protocol Stop: 11/05/17 12:01 Last Titration: 05/07/17 01:40 Dose: 18.13 unit/kg/hr, 26.3 mls/hr Insulin Detemir (Levemir) 8 unit SQ HS [facility] Stop: 11/05/17 21:01 Last Admin: 05/06/17 20:34 Dose: 8 unit Insulin Human Lispro (Humalog) 0 units SQ HS [place] PRN Reason: Protocol Stop: 11/05/17 21:01 Last Admin: 05/06/17 20:35 Dose: 8 units Insulin Human Lispro (Humalog) 0 units SQ TIDAC [facility] PRN Reason: Protocol Stop: 11/05/17 07:31 Last Admin: 05/07/17 08:32 Dose: Not Given Lisinopril (Zestril) 5 mg PO DAILY [facility] PRN Reason: Protocol Stop: 11/06/17 09:01 Last Admin: 05/07/17 08:31 Dose: 5 mg Magnesium Oxide (Mag-Ox) 400 mg PO BID [facility] PRN Reason: Protocol Stop: 05/08/17 21:01 Methylprednisolone (Solu-Medrol) 60 mg IVP Q8HR [facility] Stop: 11/05/17 16:01 Last Admin: 05/07/17 08:32 Dose: 60 mg Naloxone HCl (Narcan) 0.4 mg IVP Q2MIN PRN PRN Reason: Opioid Reversal Stop: 11/04/17 12:14 Ondansetron HCl (Zofran) 4 mg IVP Q8HR PRN PRN Reason: Nausea And Vomiting Stop: 11/04/17 12:14 Pantoprazole Sodium (Protonix) 40 mg IVP DAILY [facility] Stop: 11/04/17 12:16 Last Admin: 05/07/17 08:32 Dose: 40 mg Pharmacy Profile Note (Patient Taking Own Medication) 0 each SL BID [facility] Stop: 11/05/17 13:31 Last Admin: 05/06/17 20:34 Dose: 1 each - Imaging and Cardiology Echo: report reviewed Other Results: 12 hour tele: avg HR=63 paced rhythm. - EKG Interpretation EKG results cardiology: personally reviewed - VTE Documentation of Mechanical Device: Venous foot pump, device Consult Discharge Plan - Plan Referrals: Joan Porter CNP [Advanced Practice Nurse] - 05/14/17 10:15 am
--- NOTE | 2017-05-07 10:53 | Internal Med Progress Note ---
<Yimi Mireles - Last Filed: 05/07/17 13:15> Date of Encounter: 05/07/17 Time of Encounter: 09:30 - Assessment and plan (1) Acute respiratory failure with hypoxemia Current Visit: Yes Status: Acute Assessment and plan: Patient presented with hypoxia and acidosis. He has history of COPD, CHF, and atrial fibrillation. He reports shortness of breath today. He denies fever, cough, and chest pain. Chest CT findings concerning for acute versus chronic aspiration (versus potential neoplastic process). Patient acidosis could be from apparent DKA of presentation, though unsure of amount of contribution. Elevated troponin seen at presentation as well, though likely explained by presence of bilateral pulmonary emboli. Patient seen by pulmonology, elected for outpatient follow-up for bronchoscopy. We will transition patient to therapeutic Lovenox from heparin drip as he elect to pursue bronchoscopy as outpatient Patient was taking Pradaxa for his PAF at home, but ran out several weeks ago. He would need 5-10 days of parenteral anticoagulation before resuming the Pradaxa as treatment for his b/l PE Patient on Levaquin day 2 Will stop Unasyn Patient receiving breathing treatments with albuterol/ipratropium every 4 hours scheduled Patient on 60 mg Solu-Medrol every 8 hour, will consider decreasing Continue supplemental oxygen as needed, wean as tolerated titrate his overall action to 88-92% Oxygen saturation, BiPAP as needed Sputum and blood cultures (2) Pulmonary emboli Current Visit: Yes Status: Acute Assessment and plan: Bilateral pulmonary emboli identified on CT patient chest. Lower extremity doppler did not show any DVTs Patient started on standard dose heparin drip, but will be transitioned to therapeutic lovenox today plan for transition to Pradaxa as above Continue supplemental oxygen as needed, wean as tolerated Attempt to titrate oxygen to 88-92%, BiPAP if needed Treatment potential pneumonia as above Qualifiers: Pulmonary embolism type: other Chronicity: acute Acute cor pulmonale presence: without acute cor pulmonale Qualified Code(s): I26.99 - Other pulmonary embolism without acute cor pulmonale (3) Community acquired pneumonia Current Visit: No Status: Acute Assessment and plan: Will de-escalate antibiotics as above (4) COPD (chronic obstructive pulmonary disease) Current Visit: No Status: Chronic Assessment and plan: Patient has history of COPD and presents with difficulty breathing, hypoxia, acidosis concerning for exacerbation of COPD Plan as above Qualifiers: COPD type: emphysema Emphysema type: unspecified Qualified Code(s): J43.9 - Emphysema, unspecified (5) Abnormal finding on CT scan Current Visit: Yes Status: Acute Assessment and plan: Patient's chest CT shows several concerning findings for which he might need bronchoscopy. These findings could represent acute versus chronic aspiration, pneumonia, or neoplastic process. Pulmonology has been consulted and appreciate their recommendations for continued management/care Continue supplemental oxygen as needed, wean as tolerated Patient on Levaquin (day 2) Will stop Unasyn today Impressions Chest CT 05/05/17 17:49 IMPRESSION: 1. Interval worsening of now near complete consolidation of the bilateral lower lobes, with a more central masslike appearance of opacity within the superior segment of the right lower lobe, now causing obstruction of the right lower lobe bronchi. While this could represent interval worsening of bilateral lobe pneumonia or aspiration, the possibility of a developing right lower lobe pulmonary malignancy is raised. Suggest clinical correlation, formal pulmonary consultation, and consider bronchoscopy for further evaluation. Alternatively, a PET-CT study could also be considered for further evaluation. 2. New small right pleural effusion. 3. Curvilinear consolidative subpleural opacity within the right middle lobe most likely reflects additional atelectasis or pneumonia. 4. Focal tree-in-bud opacities within the superior segment of the left lower lobe likely reflect an infectious or inflammatory bronchiolitis. 5. New nonspecific 1.7 x 0.9 cm pleural density along the posterior right upper lobe, likely a mild focus of atelectasis. However, attention to this abnormality on follow-up imaging is recommended to ensure resolution. 6. Stable mediastinal lymphadenopathy, unchanged from 01/20/2017. 7. Stable cardiomegaly. D/ / 05/05/2017 23:32:18 Dave Campuzano MD / vanessa Interpreting Provider: Dave Campuzano MD Chest CTA 05/06/17 10:16 IMPRESSION: 1. Bilateral pulmonary emboli 2. Stable appearance of airspace consolidation predominantly in the lower lobes, with small pleural effusions. The appearance is most suggestive of pneumonia and/or atelectasis, less likely edema or infarcts D/ / Alvaro Smyth MD / Alvaro Smyth MD Interpreting Provider: Alvaro Smyth MD (6) Troponin level elevated Current Visit: Yes Status: Acute Assessment and plan: Patient found to have elevated troponin of 0.05 at presentation repeat troponin went to 0.35 and has since trended downward. Echocardiogram performed on showed EF of 50% with mildly dilated left ventricle, concentric left ventricular hypertrophy, indeterminate diastolic function, atypical septal motion consistent with paced rhythm, severe biatrial enlargement. Patient found to have bilateral pulmonary emboli on CTA of of his chest Patient seen by cardiology who feel on a troponins were likely due to patient's respiratory issues currently and will sign off (7) Hyperglycemia Current Visit: Yes Status: Acute Assessment and plan: Patient presented in DKA with anion gap of 18, blood sugars close to 600, and VBG that showed acidosis of 7.13. His DKA quickly resolved on insulin drip and he was transitioned to subcutaneous insulin. We will continue patient's subcutaneous insulin with 8 units Levemir at night and low dose corrective sliding scale subcutaneous insulin (8) History of mitral valve repair Current Visit: Yes Status: Chronic (9) DVT prophylaxis Current Visit: Yes Status: Acute Assessment and plan: Patient currently on heparin drip and will be transitioned to lovenox for treatment of bilateral pulmonary emboli - Subjective Interval history: Patient reports feeling well this morning with no concerns/complaints. He reports he feels similar to his baseline. He denies any shortness of breath, cough, fever/chills, chest pain, nausea/vomiting. - Constitutional Vitals: Temp Pulse Resp BP Pulse Ox 98.5 F 61 16 125/76 96 05/07/17 07:12 05/07/17 08:24 05/07/17 07:50 05/07/17 07:12 05/07/17 08:24 Exam: General: Cooperative, pleasant, no acute distress, alert and oriented 3, answers questions appropriately HEENT: Normocephalic, atraumatic, neck supple, trachea midline, Conjunctiva pink , sclera anicteric, oral mucosa moist, no orophargeal erythema or exudates Respiratory: No accessory muscle usage, decreased breath sounds noted on right lower lobe, increased breathy adventitious sounds in left lower lobe Cardiovascular: Regular rate and rhythm, S1 and S2 present, no murmurs/rubs/ gallops/clicks appreciated, midline surgical scar from prior valvular repair, scar in left anterior chest with underlying pacemaker GI/abdominal: Nondistended, nontender, soft, normal bowel sounds, no peritoneal signs Extremities: No calf tenderness, noncyanotic, no pretibial edema noted in right lower extremity, warm, lower extremity pulses palpable and symmetrical Neurological: Alert and oriented 3, no facial droop, no focal deficits Skin: Dry, intact, normal color Internal Medicine: Result - Labs CBC & Chem 7: 05/07/17 01:06 05/07/17 01:06 Labs: Short CBC 05/06/17 05/07/17 Range/Units 12:16 01:06 WBC 23.2 H 17.8 H (4.3-11.1) K/mcL Hgb 12.4 L 11.2 L (12.9-16.9) g/dL Hct 38.4 35.0 L (37.5-50.1) % Plt Count 216 224 (140-400) K/mcL Neutrophils # 16.1 H (1.6-8.9) K/mcL BMP 05/07/17 01:06 Sodium 138 Potassium 4.5 D Chloride 98 Carbon Dioxide 31 H BUN 19 Creatinine 0.76 Glucose 147 H Calcium 9.7 - ABG Interpretation ABG results: ABG ABG pH 7.41 pH Units (7.32-7.45) 05/05/17 15:10 ABG pCO2 63 mmHg (35-45) H 05/05/17 15:10 ABG pO2 129 mmHg (85-104) H 05/05/17 15:10 ABG O2 Saturation 99 % (95-98) H 05/05/17 15:10 PT/INR, D-dimer PT 11.6 Seconds (9.4-12.1) 05/06/17 12:16 - Impressions Impressions Chest CTA 05/06/17 10:16 IMPRESSION: 1. Bilateral pulmonary emboli 2. Stable appearance of airspace consolidation predominantly in the lower lobes, with small pleural effusions. The appearance is most suggestive of pneumonia and/or atelectasis, less likely edema or infarcts D/ / Alvaro Smyth MD / Alvaro Smyth MD Interpreting Provider: Alvaro Smyth MD Head CT 05/06/17 23:30 IMPRESSION: Mild small vessel chronic ischemic changes without acute hemorrhage or definite evidence for acute ischemia. D/ / Timoteo Martínez MD / Timoteo Martínez MD Interpreting Provider: Timoteo Martínez MD - VTE Documentation of Mechanical Device: Venous foot pump, device Consult Discharge Plan - Plan Referrals: Joan Porter, [employer] [Advanced Practice Nurse] - 05/14/17 10:15 am <Enoc Vincent - Last Filed: 05/07/17 14:53> Date of Encounter: 05/07/17 - Constitutional Vitals: Temp Pulse Resp BP Pulse Ox 98.2 F 66 18 158/77 96 05/07/17 11:20 05/07/17 14:13 05/07/17 11:20 05/07/17 11:20 05/07/17 14:13 Internal Medicine: Result - Labs CBC & Chem 7: 05/07/17 01:06 05/07/17 01:06 Labs: Short CBC 05/07/17 Range/Units 01:06 WBC 17.8 H (4.3-11.1) K/mcL Hgb 11.2 L (12.9-16.9) g/dL Hct 35.0 L (37.5-50.1) % Plt Count 224 (140-400) K/mcL Neutrophils # 16.1 H (1.6-8.9) K/mcL BMP 05/07/17 01:06 Sodium 138 Potassium 4.5 D Chloride 98 Carbon Dioxide 31 H BUN 19 Creatinine 0.76 Glucose 147 H Calcium 9.7 - ABG Interpretation ABG results: ABG ABG pH 7.41 pH Units (7.32-7.45) 05/05/17 15:10 ABG pCO2 63 mmHg (35-45) H 05/05/17 15:10 ABG pO2 129 mmHg (85-104) H 05/05/17 15:10 ABG O2 Saturation 99 % (95-98) H 05/05/17 15:10 PT/INR, D-dimer PT 11.6 Seconds (9.4-12.1) 05/06/17 12:16 - Impressions Impressions Head CT 05/06/17 23:30 IMPRESSION: Mild small vessel chronic ischemic changes without acute hemorrhage or definite evidence for acute ischemia. D/ / Timoteo Martínez MD / Timoteo Martínez MD Interpreting Provider: Timoteo Martínez MD - Attending Attestation I examined this patient and my medical decision-making was reviewed with the [employer]NAGER/PA/Advanced Practice Nurse/Resident Physician. I agree with the documented findings, disposition and treatment plan as described except to the extent set forth below. Bilateral pulmonary embolism, no evidence of deep venous thrombosis. Possible malignancy as etiology for to metabolic disease. Patient is to continue with anticoagulation, he has declined further investigation such as bronchoscopy at this point. We will stop heparin drip and transitioned to subcutaneous Lovenox. Follow recommendation by pulmonology.
[2017-05-07] MEDS ORDERED: *HR* LORazepam 1 MG TABLET PO PRN (11:23)
[2017-05-07] MEDS: Heparin 25,000 UNIT/500 ML D5W 25,000 UNIT/500 ML MLS IVC SCH (11:25)
[2017-05-07] MEDS: Aspirin Enteric Coated 81 MG Tablet PO SCH (11:27)
--- NOTE | 2017-05-07 12:43 | Electrocardiograph Report ---
[place] [id number] Test Date: 2017-05-05 Pat Name: Merlin Abarca Department: 110 Room: 2N07 Gender: M Acute Care Nursing Assistant: MRR : [id number] Requested By: Brandon Munoz Order Number: [id number] Reading MD: Weston Mata MD Measurements Intervals [place] Rate: 59 P: MN: 0 QRS: 224 QRSD: 195 T: 186 QT: 571 QTc: 571 Interpretive Statements ELECTRONIC VENTRICULAR PACEMAKER ANTERIOR ISCHEMIA Electronically Signed On 05-07-2017 12:41:36 EDT by Weston Mata MD
--- NOTE | 2017-05-07 13:47 | Pulmonology Progress Note ---
<Jaswant Spicer - Last Filed: 05/07/17 13:45> Date of Encounter: 05/07/17 Time of Encounter: 13:45 Assessment and Plan (1) Acute respiratory failure with hypoxemia Current Visit: Yes Status: Acute 67y/0 male hx of COPD on 2.5L O2, HTN, CAD, CABG, afib presented with sob, confused to ER. Found to be hypoxic by EMS with O2 satuartions in 70s. Started on BiPAP. CT shows b/l lower lobe consolidation with concerning neopasltic opacity in the right lower lobe. 2nd to bacterial pneumonia (Community aquired) however lung cancer in differential diagnosis. CTA positive for b/l PE Initially on BIPAP now transitioned to 2L O2 sputum and peripheral cultures negative patient starte on levaquin and unasyn -recommend d/c uansyn and continue levaquin On heparin recommend transition to NOAC continue bronchodilators and prednisone. Patient was offered bronchoscopy but does not want to undergo procedure today. he understands cancer as an etiology of his respiratory status as he is a long time smoker. Plan will be to have CT Chest done in two months and follow up with pulmonology for revaluation. (2) Pulmonary embolism Current Visit: Yes Status: Acute b/l pulmonary embolism seen of CTA on heparin gtt can transition to NOAC echo shows RSVP of 43: mild pulmonary htn likely chronic from long standing COPD Qualifiers: Pulmonary embolism type: other Chronicity: acute Acute cor pulmonale presence: without acute cor pulmonale Qualified Code(s): I26.99 - Other pulmonary embolism without acute cor pulmonale (3) Community acquired pneumonia Current Visit: Yes Status: Acute (4) COPD exacerbation Current Visit: Yes Status: Acute continue steroid, bronchodilators, and Levaquin. (5) DVT prophylaxis Current Visit: Yes Status: Acute lovenox (6) Elevated troponin Current Visit: Yes Status: Acute Elevated troponin with peak at 0.35 and trending down denies CP Echo shows EF of 50% with mild pulmonary HTN cardiology on board and state likely demand ischemia from b/l PE and acute respiratory failure Subjective Principal diagnosis: Acute respiratory distress, PE Interval history: Patient states his breathing has improved. Denies cough, productive sputum, wheezing. Objective PUL Vital signs: Last Vital Signs Temp 98.2 F 05/07/17 11:20 Pulse 61 06/12/17 11:23 Resp 18 05/07/17 11:20 BP 158/77 05/07/17 11:20 Pulse Ox 95 05/07/17 11:20 General appearance: no acute distress Eyes: nonicteric Effort: normal Auscultation: left: other (air turbulence), right: rhonchi, bilateral: diminished breath sounds (upper lobes) Cardiovascular: regular rate and rhythm Gastrointestinal: normoactive bowel sounds, non-distended Integumentary: normal Extremities: no cyanosis, no edema, no clubbing Results - Laboratory Findings CBC and BMP: 05/07/17 01:06 05/07/17 01:06 ABG ABG pH 7.41 pH Units (7.32-7.45) 05/05/17 15:10 ABG pCO2 63 mmHg (35-45) H 05/05/17 15:10 ABG pO2 129 mmHg (85-104) H 05/05/17 15:10 ABG O2 Saturation 99 % (95-98) H 05/05/17 15:10 PT/INR, D-dimer PT 11.6 Seconds (9.4-12.1) 05/06/17 12:16 Abnormal lab findings: Abnormal lab results WBC 17.8 K/mcL (4.3-11.1) H 05/07/17 01:06 RBC 3.80 M/mcL (4.19-5.50) L 05/07/17 01:06 Hgb 11.2 g/dL (12.9-16.9) L 05/07/17 01:06 Hct 35.0 % (37.5-50.1) L 05/07/17 01:06 Metamyelocytes % 1.0 % (0) H 05/05/17 09:30 Neutrophils # 16.1 K/mcL (1.6-8.9) H 05/07/17 01:06 Immature Plt Fraction 8.4 % (1.1-6.1) H 05/07/17 01:06 APTT 64.8 Seconds (26.0-36.0) H 05/07/17 07:50 ABG pCO2 63 mmHg (35-45) H 05/05/17 15:10 ABG pO2 129 mmHg (85-104) H 05/05/17 15:10 ABG HCO3 39.9 mEQ/L (21-27) H 05/05/17 15:10 ABG Total CO2 41.8 mEq/L (20-26) H 05/05/17 15:10 ABG O2 Saturation 99 % (95-98) H 05/05/17 15:10 ABG Base Excess 12.6 mEq/L (-2.0 to 3.0) H 05/05/17 15:10 VBG pH 7.13 pH Units (7.32-7.42) L* 05/05/17 09:50 VBG pCO2 81 mmHg (41-51) H 05/05/17 09:50 Carbon Dioxide 31 mEq/L (19-29) H 05/07/17 01:06 Glucose 147 mg/dL (70-99) H 05/07/17 01:06 POC Glucose 181 (58-89) H 05/06/17 20:31 AST 58 Units/L (5-34) H 05/05/17 13:03 Troponin I 0.22 ng/mL (0-0.03) H* 05/06/17 02:22 B-Natriuretic Peptide 242 pg/mL (0-100) H 05/05/17 09:30 Albumin 2.8 g/dL (3.5-5.0) L 05/05/17 13:03 Albumin/Globulin Ratio 0.8 (1.1-2.2) L 05/05/17 13:03 Beta-Hydroxybutyric Acd 0.30 mmol/L (0.02-0.27) H 05/05/17 09:30 - Microbiology Findings Microbiology Findings: Microbiology, Last 48 Hours 05/06/17 02:45 Sputum Culture - Preliminary Sputum - Clinical Findings Intake & Output: Intake & Output 05/06/17 05/07/17 05/07/17 23:59 07:59 15:59 Intake Total 567 / 567 252 / 252 266 / 266 Output Total 1650 / 1650 575 / 575 Balance -1083 / -1083 252 / 252 -309 / -309 Weight 72.3 kg - VTE Documentation of Mechanical Device: Venous foot pump, device Consult Discharge Plan - Plan Referrals: Joan Porter CNP [Advanced Practice Nurse] - 05/14/17 10:15 am <Carlos Villela - Last Filed: 05/07/17 17:23> Date of Encounter: 05/07/17 Objective PUL Vital signs: Last Vital Signs Temp 97.5 F L 05/07/17 16:43 Pulse 66 05/07/17 17:16 Resp 18 05/07/17 16:43 BP 154/72 05/07/17 16:43 Pulse Ox 95 05/07/17 17:16 Results - Laboratory Findings CBC and BMP: 05/07/17 01:06 05/07/17 01:06 ABG ABG pH 7.41 pH Units (7.32-7.45) 05/05/17 15:10 ABG pCO2 63 mmHg (35-45) H 05/05/17 15:10 ABG pO2 129 mmHg (85-104) H 05/05/17 15:10 ABG O2 Saturation 99 % (95-98) H 05/05/17 15:10 PT/INR, D-dimer PT 11.6 Seconds (9.4-12.1) 05/06/17 12:16 Abnormal lab findings: Abnormal lab results WBC 17.8 K/mcL (4.3-11.1) H 05/07/17 01:06 RBC 3.80 M/mcL (4.19-5.50) L 05/07/17 01:06 Hgb 11.2 g/dL (12.9-16.9) L 05/07/17 01:06 Hct 35.0 % (37.5-50.1) L 05/07/17 01:06 Metamyelocytes % 1.0 % (0) H 05/05/17 09:30 Neutrophils # 16.1 K/mcL (1.6-8.9) H 05/07/17 01:06 Immature Plt Fraction 8.4 % (1.1-6.1) H 05/07/17 01:06 APTT 56.7 Seconds (26.0-36.0) H 05/07/17 14:40 ABG pCO2 63 mmHg (35-45) H 05/05/17 15:10 ABG pO2 129 mmHg (85-104) H 05/05/17 15:10 ABG HCO3 39.9 mEQ/L (21-27) H 05/05/17 15:10 ABG Total CO2 41.8 mEq/L (20-26) H 05/05/17 15:10 ABG O2 Saturation 99 % (95-98) H 05/05/17 15:10 ABG Base Excess 12.6 mEq/L (-2.0 to 3.0) H 05/05/17 15:10 VBG pH 7.13 pH Units (7.32-7.42) L* 05/05/17 09:50 VBG pCO2 81 mmHg (41-51) H 05/05/17 09:50 Carbon Dioxide 31 mEq/L (19-29) H 05/07/17 01:06 Glucose 147 mg/dL (70-99) H 05/07/17 01:06 POC Glucose 181 (58-89) H 05/06/17 20:31 AST 58 Units/L (5-34) H 05/05/17 13:03 Troponin I 0.22 ng/mL (0-0.03) H* 05/06/17 02:22 B-Natriuretic Peptide 242 pg/mL (0-100) H 05/05/17 09:30 Albumin 2.8 g/dL (3.5-5.0) L 05/05/17 13:03 Albumin/Globulin Ratio 0.8 (1.1-2.2) L 05/05/17 13:03 Beta-Hydroxybutyric Acd 0.30 mmol/L (0.02-0.27) H 05/05/17 09:30 - Microbiology Findings Microbiology Findings: Microbiology, Last 48 Hours 05/07/17 14:54 Legionella Antigen - Final Urine,Clean Catch Streptococcus pneumoniae Antigen (M - Final 05/06/17 02:45 Sputum Culture - Preliminary Sputum - Clinical Findings Intake & Output: Intake & Output 05/07/17 05/07/17 05/07/17 07:59 15:59 23:59 Intake Total 252 / 252 266 / 266 Output Total 575 / 575 Balance 252 / 252 -309 / -309 Weight 72.3 kg - Attending Attestation I examined this patient and my medical decision-making was reviewed with the MODEL [employer] MOLD MAKER/PA/Advanced Practice Nurse/Resident Physician. I agree with the documented findings, disposition and treatment plan as described except to the extent set forth below. Patient seen and examined. Labs, radiology, chart personally reviewed. Agree with resident's history and physical, assessment, plan with following comments: LEAD WELDER: Patient follows commands, Pulmonary: Acceptable oxygenation and ventilation. I have explained to patient in the presence of the nurse about the bronchoscopy since there is questionable endobronchial lesion versus mucus plugging and patient pre-or not to have bronchoscopy, but rather have her follow-up CT chest as outpatient in about 2-3 months. He understand if there is malignancies as underlying cause for his hypercoagulable condition, then waiting is not recommended. Continue anticoagulation and can be transitioned to oral medications such as one of NOAC. Cardiovascular: stable
[2017-05-07] MEDS: Magnesium Oxide 400 MG TABLET PO SCH ×2 (14:15→21:20)
[2017-05-07] MEDS: Levofloxacin 500 MG/100 ML 500 MG/100 ML BAG IVPB SCH (14:15)
[2017-05-07] MEDS: *HR* Enoxaparin 80 MG/0.8 ML SYRINGE SQ SCH (17:20)
[2017-05-07] MEDS: Insulin DETEMIR 100 UNIT/ML X5UNITS SQ SCH (21:19)
[2017-05-08] MEDS: methylPREDNISolone 125 MG/2 ML VIAL IVP SCH ×2 (00:10→08:02)
[2017-05-08] MEDS: Ipratropium/Albuterol Neb 3 ML IH SCH ×4 (00:19→11:21)
[2017-05-08 05:37] LABS: Basophils % 0.1 %; Hematocrit 34.1 % (37.5-50.1); Hemoglobin 11.2 g/dL (12.9-16.9); Immature Granulocytes % 1.3 % (0-4); Lymphocytes # 0.8 K/mcL (0.6-4.6); Lymphocytes % 6.3 %; Mean Corpuscular HGB Conc 32.8 g/dL (31.6-35.5); Mean Corpuscular Hemoglobin 29.8 pg (28.0-33.3); Mean Corpuscular Volume 90.7 fL (83.0-100.0); Monocytes # 0.5 K/mcL (0.0-1.3); Monocytes % 4.2 %; Neutrophils # 10.7 K/mcL (1.6-8.9); Platelet Count 233 K/mcL (140-400); Red Blood Count 3.76 M/mcL (4.19-5.50); Segmented Neutrophils % 88.1 %
[2017-05-08 06:20] LABS: BUN/Creatinine Ratio 35 (6-26); Blood Urea Nitrogen 27 mg/dL (8-26); Calcium 9.8 mg/dL (8.6-10.8); Carbon Dioxide 35 mEq/L (19-29); Chloride 98 mEq/L (98-109); Glucose 169 mg/dL (70-99); Osmolality,Calculated 291 (280-300); Potassium 4.4 mEq/L (3.5-4.5); Sodium 136 mEq/L (136-145); eGFR For African Americans > 60 (> 60); eGFR For Non-African Americans > 60 (> 60)
[2017-05-08] MEDS: *HR* Enoxaparin 80 MG/0.8 ML SYRINGE SQ SCH (06:22)
[2017-05-08 08:01] VITALS: BP 129/73
[2017-05-08] MEDS: Insulin LISPRO 300 UNITS/3 ML VIAL SQ SCH ×2 (08:01→11:52)
[2017-05-08] MEDS: Aspirin Enteric Coated 81 MG Tablet PO SCH (08:02)
[2017-05-08] MEDS: Pantoprazole 40 MG VIAL IVP SCH (08:02)
[2017-05-08] MEDS: Magnesium Oxide 400 MG TABLET PO SCH (08:02)
[2017-05-08] MEDS: Budesonide Neb 0.5 MG/2 ML IH SCH (08:25)
--- NOTE | 2017-05-08 10:24 | Discharge Summary ---
Date of Encounter: 05/08/17 Time of Encounter: 10:23 - Discharge Diagnosis (1) Community acquired pneumonia Priority: Primary Status: Acute (2) COPD (chronic obstructive pulmonary disease) Priority: Secondary Status: Chronic Qualifiers: COPD type: emphysema Emphysema type: unspecified Qualified Code(s): J43.9 - Emphysema, unspecified (3) CHF (congestive heart failure) Priority: Secondary Status: Chronic Qualifiers: Congestive heart failure type: diastolic Congestive heart failure chronicity: acute on chronic Qualified Code(s): I50.33 - Acute on chronic diastolic (congestive) heart failure (4) Acute respiratory failure with hypoxemia Priority: Primary Status: Acute (5) CAD (coronary artery disease) Priority: Secondary Status: Chronic Qualifiers: Coronary Disease-Associated Artery/Lesion type: [place] artery [place] vs. transplanted heart: [place] heart Associated angina: without angina Qualified Code(s): I25.10 - Atherosclerotic heart disease of [place] coronary artery without angina pectoris (6) Troponin level elevated Priority: Primary Status: Acute (7) PAF (paroxysmal atrial fibrillation) Priority: Secondary Status: Chronic (8) History of mitral valve repair Priority: Secondary Status: Chronic (9) Pulmonary emboli Priority: Primary Status: Acute Qualifiers: Pulmonary embolism type: other Chronicity: acute Acute cor pulmonale presence: without acute cor pulmonale Qualified Code(s): I26.99 - Other pulmonary embolism without acute cor pulmonale - Discharge Medications Prescriptions: Apixaban [Eliquis] 10 mg PO BID #14 tablet Apixaban [Eliquis] 5 mg PO BID #30 tablet Levofloxacin [Levaquin] 500 mg PO DAILY #4 tablet Lisinopril [Zestril] 10 mg PO DAILY #30 tablet predniSONE [PredniSONE] 40 mg PO DAILY #6 tablet Home Medications: Buprenorphine HCl/Naloxone HCl [Suboxone 8 mg-2 mg Sl Film] 1 film SL BID [History] Fluticasone/Salmeterol [Advair 250-50 Diskus] 1 puff IH BID 09/24/16 [History] Furosemide [Lasix] 20 mg PO DAILY 09/24/16 [History] Carvedilol 12.5 mg PO BID #30 tab 01/22/17 [Rx] Potassium Chloride [Klor-Con 10] 10 meq PO BID #60 tablet.er 01/22/17 [Rx] Albuterol Neb [Proventil Neb] 2.5 mg IH Q4HR 05/05/17 [History] Roflumilast [Daliresp] 500 mcg PO DAILY 05/05/17 [History] Apixaban [Eliquis] 5 mg PO BID #30 tablet 05/08/17 [Rx] Apixaban [Eliquis] 10 mg PO BID #14 tablet 05/08/17 [Rx] Aspirin Enteric Coated [Aspirin EC] 81 mg PO DAILY tablet. 05/08/17 [Rx] Levofloxacin [Levaquin] 500 mg PO DAILY #4 tablet 05/08/17 [Rx] Lisinopril [Zestril] 10 mg PO DAILY #30 tablet 05/08/17 [Rx] predniSONE [PredniSONE] 40 mg PO DAILY #6 tablet 05/08/17 [Rx] Allergies/Adverse Reactions: Allergies No Known Allergies Allergy (Verified 01/17/17 04:28) Procedures/tests Complete & Pending: Procedures Performed prior 72 hours Category Date Time Status CT angio chest [CT] Stat Cat Scan 05/06/17 10:[address] chest wo con [CT] Stat Cat Scan 05/05/17 17:[address] head/brain wo con [CT] Routine Cat Scan 05/06/17 23:30 Completed EKG [ECG 12 lead ECG] [ECG] Stat Y 05/05/17 17:47 Completed Venous Doppler [EV venous imaging LE BI] Routine Y 05/06/17 13:34 Completed Date of admission: 05/05/17 15:46 Primary care physician: Angel Escamilla DO Consults: 05/06/17 10:46 Consult to Cardiology [CONS] Routine Comment: Consulting Provider: Cardiology Francisca Reason for Consult: Concern for ACS, on heparin drip Call Completed: Yes Consult to Pulmonology [CONS] Routine Consulting Provider: [facility] [place] Reason for Consult: Concern patient might need bronchoscopy Call Completed: Yes Discharging clinician: Lukasz Uriarte Anticipated date of discharge: 05/08/17 - Patient Status Disposition: Left Against Medical Advice Condition: Fair Functional capacity at discharge: independent ambulation Overall status at discharge: patient is progressing back to baseline - Discharge Instructions Instructions: Lisinopril (By mouth), Prednisone (By mouth), Levofloxacin (By mouth), Apixaban (By mouth), Heart Failure (DC), Pulmonary Embolism (DC), Chronic Obstructive Pulmonary Disease (DC), Pneumonia (DC) Follow Up With: Joan Porter CNP [Advanced Practice Nurse] - 05/14/17 10:15 am Carlos Villela MD [Partnered Physician] - 08/21/17 9:30 am - Diet and Activity Activity: resume usual activities as tolerated, wear oxygen at all times Diet: diabetic diet, low fat, low cholesterol, low salt diet Interval History: See below Hospital course: Mr. Abarca is a 67 year old male with PMHx significant for PAF s/p AV node ablation in 2010, HTN, HLD, non-ischemic cardiomyopathy s/p ICD, hx of CVA, MVR , DMII, tobacco dependence, and COPD on home o2 who presented to [facility] after he developed acute onset of shortness of breath. Patient was admitted and managed for acute hypoxic respiratory failure secondary to community-acquired pneumonia, elevated troponins, ketoacidosis. Patient is known to be noncompliant with his home medications, and follow-up appointments. His respiratory and metabolic acidosis with thoughts to be possibly due to a new onset of diabetes mellitus, however there was no hemoglobin A1c done in this admission, and he is at her blood gas pH was normal at 7.4.. Patient has no prior history of diabetes mellitus. Patient's imaging including chest CT and CTA (as attached below) showed near complete consolidation of bilateral lower lobes and the possible malignancy. CT showed pulmonary emboli. Patient was started on Levaquin and Unasyn for community-acquired pneumonia. Patient was also started on heparin drip and pulmonology was consulted for possible bronchoscopy with biopsy. Pulmonology has been following the patient till today. Patient refused any invasive procedures during this admission. He was paced on heparin for anticoagulation and was started on Lovenox subcutaneous for aim to bridging with Pradaxa since patient was on Pradaxa at home for atrial fibrillation, patient endorses noncompliance with his medication.. Patient also had elevated troponins without EKG changes, cardiology was consulted and there was no intervention necessary. He presented with leukocytosis which is improving with antibiotic therapy. Upon evaluation of the patient this morning, patient reports that he will be leaving the hospital AGAINST MEDICAL ADVICE. This is despite education on his several diagnoses, need for follow-up of anticoagulation, need for transition to po anticoagulants, antibiotics and steroids. Patient is educated on the risk of worsening respiratory failure, and cardiac arrest with following incompletion of treatment. Patient is alert, oriented 3 and able to verbalize this and return. Patient will be provided with prescriptions for antibiotics, prednisone, and Eliquis till he is avble to follow up Follow up with primary physician, pulmonology for follow-up for suspected lung mass, cardiology for pacemaker interrogation and management of Afib/CHF. His medications have been reconciled appropriately 3 minutes spent on counselling on tobacco cessation Chest CT 05/05/17 17:49 IMPRESSION: 1. Interval worsening of now near complete consolidation of the bilateral lower lobes, with a more central masslike appearance of opacity within the superior segment of the right lower lobe, now causing obstruction of the right lower lobe bronchi. While this could represent interval worsening of bilateral lobe pneumonia or aspiration, the possibility of a developing right lower lobe pulmonary malignancy is raised. Suggest clinical correlation, formal pulmonary consultation, and consider bronchoscopy for further evaluation. Alternatively, a PET-CT study could also be considered for further evaluation. 2. New small right pleural effusion. 3. Curvilinear consolidative subpleural opacity within the right middle lobe most likely reflects additional atelectasis or pneumonia. 4. Focal tree-in-bud opacities within the superior segment of the left lower lobe likely reflect an infectious or inflammatory bronchiolitis. 5. New nonspecific 1.7 x 0.9 cm pleural density along the posterior right upper lobe, likely a mild focus of atelectasis. However, attention to this abnormality on follow-up imaging is recommended to ensure resolution. 6. Stable mediastinal lymphadenopathy, unchanged from 01/20/2017. 7. Stable cardiomegaly. D/ / 05/05/2017 23:32:18 Dave Campuzano MD / vanessa Interpreting Provider: Dave Campuzano MD Chest CTA 05/06/17 10:16 IMPRESSION: 1. Bilateral pulmonary emboli 2. Stable appearance of airspace consolidation predominantly in the lower lobes, with small pleural effusions. The appearance is most suggestive of pneumonia and/or atelectasis, less likely edema or infarcts D/ / Alvaro Smyth MD / Alvaro Smyth MD Interpreting Provider: Alvaro Smyth MD Time spent discussing smoking cessation with patient: 3 to 10 minutes - Time Spent with Patient Total time spent providing and/or coordinating discharge services: Greater than 30 minutes (40 minutes spent pn chart review, patient encounter, discussion of consequences of leaving AMA, educating on need for anticoagulation , medication reconciliation and documentation) - Constitutional Vitals: Temp Pulse Resp BP Pulse Ox 97.5 F L 61 12 129/73 93 05/08/17 07:46 05/08/17 07:46 05/08/17 08:27 05/08/17 07:46 05/08/17 08:27 General appearance: Present: A&O X 3, pleasant, no acute distress - Head Head exam: Present: atraumatic, normocephalic - Eye Eye exam: Present: PERRL, conjuntiva pink, sclera anicteric Pupils: Present: PERRL - Neck Neck exam general surgery: Present: supple, trachea midline. Absent: lymphadenopathy - Respiratory Respiratory exam: Present: CTAB. Absent: accessory muscle use, rales, rhonchi, wheezes - Cardiovascular Cardiovascular exam: Present: irregular rhythm, +S1, +S2. Absent: diastolic murmur, gallop, rubs, systolic murmur - GI/Abdominal GI/Abdominal exam: Present: normal bowel sounds, soft, no peritoneal signs. Absent: distended, tenderness - Extremities Exam Extremities exam: Present: warm, radial pulses palpable and symetrical. Absent : calf tenderness, cyanotic, pedal edema - Neurological Exam Neurological exam: Present: alert, CN II-XII intact, oriented X3, no focal deficits. Absent: pronater drift, facial droop, speech deficit - Skin Skin exam: Present: dry, intact - VTE Documentation of Mechanical Device: Venous foot pump, device
--- NOTE | 2017-05-08 10:52 | Pulmonology Progress Note ---
<Jasawnt Spicer - Last Filed: 05/08/17 14:16> Date of Encounter: 05/08/17 Time of Encounter: 10:47 Assessment and Plan (1) Acute respiratory failure with hypoxemia Status: Acute 67y/0 male hx of COPD on 2.5L O2, HTN, CAD, CABG, afib presented with sob, confused to ER. Found to be hypoxic by EMS with O2 satuartions in 70s. Started on BiPAP. CT shows b/l lower lobe consolidation with concerning neopasltic opacity in the right lower lobe. Unclear if malginancy or mucous plugging. 2nd to bacterial pneumonia (Community aquired) however lung cancer in differential diagnosis. CTA positive for b/l PE sputum and peripheral cultures negative WBC improving, afebrile, states sob improved -levaquin day 3. Needs total 7 days. On heparin recommend transition to NOAC continue bronchodilators and prednisone. Patient was offered bronchoscopy but does not want to undergo procedure. He understands cancer as an etiology of his respiratory status cannot be ruled out as he is a long time smoker. Plan will be to have CT Chest done in two months and follow up with pulmonology for revaluation. (2) Pulmonary embolism Status: Acute b/l pulmonary embolism seen of CTA malignancy in differential: hypercoaguable state on lovenox transition to noac echo shows RSVP of 43: mild pulmonary htn likely chronic from long standing COPD Qualifiers: Pulmonary embolism type: other Chronicity: acute Acute cor pulmonale presence: without acute cor pulmonale Qualified Code(s): I26.99 - Other pulmonary embolism without acute cor pulmonale (3) Community acquired pneumonia Status: Acute (4) COPD exacerbation Status: Acute continue steroid, bronchodilators, and Levaquin. (5) DVT prophylaxis Status: Acute lovenox (6) Elevated troponin Status: Acute Elevated troponin with peak at 0.35 and trending down denies CP Echo shows EF of 50% with mild pulmonary HTN cardiology on board and state likely demand ischemia from b/l PE and acute respiratory failure Subjective Principal diagnosis: Acute respiratory distress, PE Interval history: Patient states his breathing has improved. Denies cough, productive sputum, wheezing. Objective PUL Vital signs: Last Vital Signs Temp 97.5 F L 05/08/17 07:46 Pulse 61 05/08/17 07:46 Resp 12 05/08/17 08:27 BP 129/73 05/08/17 07:46 Pulse Ox 93 05/08/17 08:27 General appearance: no acute distress Eyes: nonicteric ENT: oropharynx moist Neck: supple Effort: normal Auscultation: bilateral: rales (lower lobes ), rhonchi (lower lobes ) Cardiovascular: regular rate and rhythm, other (paced rhythm ) Gastrointestinal: normoactive bowel sounds, non-distended Integumentary: normal Extremities: no cyanosis, no clubbing, edema (mild ) Musculoskeletal: no deformities, ROM normal normal mental status, non-focal exam mood appropriate, affect normal Results - Laboratory Findings CBC and BMP: 05/08/17 04:41 05/08/17 04:41 ABG ABG pH 7.41 pH Units (7.32-7.45) 05/05/17 15:10 ABG pCO2 63 mmHg (35-45) H 05/05/17 15:10 ABG pO2 129 mmHg (85-104) H 05/05/17 15:10 ABG O2 Saturation 99 % (95-98) H 05/05/17 15:10 PT/INR, D-dimer PT 11.6 Seconds (9.4-12.1) 05/06/17 12:16 Abnormal lab findings: Abnormal lab results WBC 12.2 K/mcL (4.3-11.1) H 05/08/17 04:41 RBC 3.76 M/mcL (4.19-5.50) L 05/08/17 04:41 Hgb 11.2 g/dL (12.9-16.9) L 05/08/17 04:41 Hct 34.1 % (37.5-50.1) L 05/08/17 04:41 Metamyelocytes % 1.0 % (0) H 05/05/17 09:30 Neutrophils # 10.7 K/mcL (1.6-8.9) H 05/08/17 04:41 Immature Plt Fraction 8.4 % (1.1-6.1) H 05/07/17 01:06 APTT 56.7 Seconds (26.0-36.0) H 05/07/17 14:40 ABG pCO2 63 mmHg (35-45) H 05/05/17 15:10 ABG pO2 129 mmHg (85-104) H 05/05/17 15:10 ABG HCO3 39.9 mEQ/L (21-27) H 05/05/17 15:10 ABG Total CO2 41.8 mEq/L (20-26) H 05/05/17 15:10 ABG O2 Saturation 99 % (95-98) H 05/05/17 15:10 ABG Base Excess 12.6 mEq/L (-2.0 to 3.0) H 05/05/17 15:10 VBG pH 7.13 pH Units (7.32-7.42) L* 05/05/17 09:50 VBG pCO2 81 mmHg (41-51) H 05/05/17 09:50 Carbon Dioxide 35 mEq/L (19-29) H 05/08/17 04:41 BUN 27 mg/dL (8-26) H 05/08/17 04:41 BUN/Creatinine Ratio 35 (6-26) H 05/08/17 04:41 Glucose 169 mg/dL (70-99) H 05/08/17 04:41 POC Glucose 396 (58-89) H 05/07/17 20:12 AST 58 Units/L (5-34) H 05/05/17 13:03 Troponin I 0.22 ng/mL (0-0.03) H* 05/06/17 02:22 B-Natriuretic Peptide 242 pg/mL (0-100) H 05/05/17 09:30 Albumin 2.8 g/dL (3.5-5.0) L 05/05/17 13:03 Albumin/Globulin Ratio 0.8 (1.1-2.2) L 05/05/17 13:03 Beta-Hydroxybutyric Acd 0.30 mmol/L (0.02-0.27) H 05/05/17 09:30 - Microbiology Findings Microbiology Findings: Microbiology, Last 48 Hours 05/06/17 02:45 Sputum Culture - Final Sputum 05/07/17 14:54 Legionella Antigen - Final Urine,Clean Catch Streptococcus pneumoniae Antigen (M - Final - Clinical Findings Intake & Output: Intake & Output 05/07/17 05/08/17 05/08/17 23:59 07:59 15:59 Intake Total 633 / 633 Output Total 820 / 820 400 / 400 Balance -187 / -187 -400 / -400 Weight 73.2 kg - VTE Documentation of Mechanical Device: Venous foot pump, device Consult Discharge Plan - Plan Instructions: Lisinopril (By mouth), Prednisone (By mouth), Levofloxacin (By mouth), Apixaban (By mouth), Heart Failure (DC), Pulmonary Embolism (DC), Chronic Obstructive Pulmonary Disease (DC), Pneumonia (DC) Referrals: Joan Porter CNP [Advanced Practice Nurse] - 05/14/17 10:15 am Carlos Villela MD [Partnered Physician] - 08/21/17 9:30 am Prescriptions: Apixaban [Eliquis] 10 mg PO BID #14 tablet Apixaban [Eliquis] 5 mg PO BID #30 tablet Levofloxacin [Levaquin] 500 mg PO DAILY #4 tablet Lisinopril [Zestril] 10 mg PO DAILY #30 tablet predniSONE [PredniSONE] 40 mg PO DAILY #6 tablet <Carlos Villela - Last Filed: 05/08/17 17:49> Date of Encounter: 05/08/17 Objective PUL Vital signs: Last Vital Signs Temp 97.5 F L 05/08/17 07:46 Pulse 61 05/08/17 07:46 Resp 12 05/08/17 11:22 BP 129/73 05/08/17 07:46 Pulse Ox 93 05/08/17 11:22 Results - Laboratory Findings CBC and BMP: 05/08/17 04:41 05/08/17 04:41 ABG ABG pH 7.41 pH Units (7.32-7.45) 05/05/17 15:10 ABG pCO2 63 mmHg (35-45) H 05/05/17 15:10 ABG pO2 129 mmHg (85-104) H 05/05/17 15:10 ABG O2 Saturation 99 % (95-98) H 05/05/17 15:10 PT/INR, D-dimer PT 11.6 Seconds (9.4-12.1) 05/06/17 12:16 Abnormal lab findings: Abnormal lab results WBC 12.2 K/mcL (4.3-11.1) H 05/08/17 04:41 RBC 3.76 M/mcL (4.19-5.50) L 05/08/17 04:41 Hgb 11.2 g/dL (12.9-16.9) L 05/08/17 04:41 Hct 34.1 % (37.5-50.1) L 05/08/17 04:41 Metamyelocytes % 1.0 % (0) H 05/05/17 09:30 Neutrophils # 10.7 K/mcL (1.6-8.9) H 05/08/17 04:41 Immature Plt Fraction 8.4 % (1.1-6.1) H 05/07/17 01:06 APTT 56.7 Seconds (26.0-36.0) H 05/07/17 14:40 ABG pCO2 63 mmHg (35-45) H 05/05/17 15:10 ABG pO2 129 mmHg (85-104) H 05/05/17 15:10 ABG HCO3 39.9 mEQ/L (21-27) H 05/05/17 15:10 ABG Total CO2 41.8 mEq/L (20-26) H 05/05/17 15:10 ABG O2 Saturation 99 % (95-98) H 05/05/17 15:10 ABG Base Excess 12.6 mEq/L (-2.0 to 3.0) H 05/05/17 15:10 VBG pH 7.13 pH Units (7.32-7.42) L* 05/05/17 09:50 VBG pCO2 81 mmHg (41-51) H 05/05/17 09:50 Carbon Dioxide 35 mEq/L (19-29) H 05/08/17 04:41 BUN 27 mg/dL (8-26) H 05/08/17 04:41 BUN/Creatinine Ratio 35 (6-26) H 05/08/17 04:41 Glucose 169 mg/dL (70-99) H 05/08/17 04:41 POC Glucose 211 (58-89) H 05/08/17 11:47 AST 58 Units/L (5-34) H 05/05/17 13:03 Troponin I 0.22 ng/mL (0-0.03) H* 05/06/17 02:22 B-Natriuretic Peptide 242 pg/mL (0-100) H 05/05/17 09:30 Albumin 2.8 g/dL (3.5-5.0) L 05/05/17 13:03 Albumin/Globulin Ratio 0.8 (1.1-2.2) L 05/05/17 13:03 Beta-Hydroxybutyric Acd 0.30 mmol/L (0.02-0.27) H 05/05/17 09:30 - Microbiology Findings Microbiology Findings: Microbiology, Last 48 Hours 05/06/17 02:45 Sputum Culture - Final Sputum 05/07/17 14:54 Legionella Antigen - Final Urine,Clean Catch Streptococcus pneumoniae Antigen (M - Final - Clinical Findings Intake & Output: Intake & Output 05/08/17 05/08/17 05/08/17 07:59 15:59 23:59 Intake Total 720 / 720 Output Total 400 / 400 775 / 775 Balance -400 / -400 -55 / -55 Weight 73.2 kg - Attending Attestation I examined this patient and my medical decision-making was reviewed with the YACHT BUILDER/PA/Advanced Practice Nurse/Resident Physician. I agree with the documented findings, disposition and treatment plan as described except to the extent set forth below. Patient was discharged and no significant changes. Discussed with the resident and patient to follow-up as outpatient. He understand he may need bronchoscopy as outpatient.
== END 2017-05-08 11:10 | disposition left against medical advice (07) | DRG 175 ==
LOC: EMEROO 09:25 → 2NNU 15:46 → SUATTDRO 15:46 → 2NNU 15:47
PROVIDERS: ADMIT Internal Medicine; ATTEND Internal Medicine